=== PATIENT | male | born 1960 | race Caucasian/White ===

== ENCOUNTER 2023-10-15 15:42 | Emergency (ER) | payer BC, SELFPAY ==
[2023-10-15 15:42] VITALS: BMI 22.9
[2023-10-15 15:43] VITALS: BP 131/88
[2023-10-15 15:59] LABS: % Basophils 1.1 % (0-2); % Eosinophils 1.7 % (0-6); % Immature Granulocytes 0.4 % (0-0.5); % Lymphocytes 22.6 % (20.5-51.1); % Neutrophils 64.2 % (42.2-75.2); Absolute Basophils 0.1 10^3/uL (0-0.2); Absolute Eosinophils 0.1 10^3/uL (0-0.7); Absolute Lymphocytes 1.2 10^3/uL (1.2-3.4); Absolute Monocytes 0.5 10^3/uL (0.1-0.6); Absolute Neutrophils 3.4 10^3/uL (1.4-6.5); Hematocrit 29.6 % (39.0-52.0); Hemoglobin 9.3 g/dL (13.0-18.0); Mean Corp Hgb Conc. 31.4 g/dL (33.0-37.0); Mean Corpuscular Hgb 21.9 pg (27.0-31.0); Mean Corpuscular Volume 69.8 fL (80.0-94.0); Mean Platelet Volume 9.2 fL (7.4-10.4); Nucleated Red Blood Cells % 0 % (-); Platelet Count 311 10^3/uL (130-400); Red Blood Cell Count 4.24 10^6/uL (4.70-6.10); Red Cell Dist. Width 18.9 % (11.5-14.5); White Blood Cell Count 5.3 10^3/uL (4.8-10.8)
[2023-10-15 16:13] VITALS: BP 136/87
[2023-10-15 16:20] LABS: ALT (SGPT) 22 U/L (0-50); AST (SGOT) 25 U/L (17-59); Albumin 4.3 g/dl (3.5-5.0); Alkaline Phosphatase 98 U/L (38-126); Blood Urea Nitrogen 24 mg/dl (9-20); Calcium 9.2 mg/dl (8.4-10.2); Carbon Dioxide 26 mmol/L (22-30); Chloride 106 mmol/L (98-107); Glucose 72 mg/dl (70-99); Potassium 4.6 mmol/L (3.5-5.1); Sodium 141 mmol/L (135-145); Total Bilirubin 0.3 mg/dl (0.2-1.3); eGFR > 60.00
[2023-10-15 16:22] LABS: Troponin I < 0.012 ng/ml
--- NOTE | 2023-10-15 16:47 | ED.GENMED ---
History of Present Illness
General
Chief Complaint: Chest Pain
Time Seen by Provider: 10/15/23 16:10
History of Present Illness
History of Present Illness:
63-year-old male with history of coronary artery disease status post SC 2021 (DILAN to the RCA) presents to the emergency department for evaluation of intermittent left-sided chest pain. Symptoms are occasionally exertional and occasionally random.
They are associated with exertional shortness of breath. Denies any associated fever, chills, sweats, nausea, vomiting, or diarrhea. Pain is rated a 2 out of 10 at maximum. He has been compliant with his aspirin.
Past History
Past History
ED Past Medical History: CAD, HTN, Hypercholesterolemia, [place] and Other (Tremors)
ED Past Surgical History: Cardiac (stent)
Social History
Tobacco: Non-smoker
Alcohol: None
Drug: None
Personal:
Living: alone
Employment: Employed
Family History
Family History: Negative Early CAD
Review of Systems
Review of Systems
Allergies reviewed?: Yes
All Other Systems: ROS reviewed and negative except as documented in HPI and ROS
Phy Exam
Physical Exam
Physical Exam:
GEN: Well appearing, NAD, WDWN
HEENT: Oral mucosa moist, no scleral icterus
Cardiac: Regular rate and rhythm, no murmurs
Lung: No respiratory distress, no tachypnea, lungs clear to auscultation bilaterally
MSK: No gross deformity or injuries
Skin: Good color, no pallor or jaundice, no rashes
Neuro: AO x3, moves all extremities freely
Psych: Calm, cooperative
Scores
Heart Score for Chest Pain Patients
STEMI patient?: No
History: Moderately Suspicious
ECG: Normal
Age: >45 - <65 years
Risk Factors: >/= 3 Risk Factors or History of CAD
Troponin: </= Normal Limit
Heart Score for Chest Pain Patients: 4
Heart Score Risk: 20.3% MACE over next 6 weeks
Course
Orders/Labs/Results
Orders:
Orders
10/15/23 15:47
Electrocardiogram (*1) Urgent
Reason for Study: Chest Pain
EKG- Treatment ONCE
10/15/23 15:51
Complete Blood Count/With Diff Urgent
Comprehensive Metabolic Panel Urgent
Troponin I Urgent
Abnormal Lab Results
10/15/23
15:51
RBC 4.24 L 10^6/uL
(4.70-6.10)
Hgb 9.3 L g/dL
(13.0-18.0)
Hct 29.6 L %
(39.0-52.0)
MCV 69.8 L fL
(80.0-94.0)
MCH 21.9 L pg
(27.0-31.0)
MCHC 31.4 L g/dL
(33.0-37.0)
RDW 18.9 H %
(11.5-14.5)
Monocytes % 10.0 H %
(1.7-9.3)
BUN 24 H mg/dl
(9-20)
10/15/23 15:51
10/15/23 15:51
Vital Signs
Initial and Last Documented VS:
Initial Vital Signs
Temp Pulse Resp BP Pulse Ox
98 F 78 18 131/88 98
10/15/23 15:43 10/15/23 15:43 10/15/23 15:43 10/15/23 15:43 10/15/23 15:43
Last Documented Vital Signs
Temp Pulse Resp BP Pulse Ox
98.6 F 71 5 136/87 98
10/15/23 16:00 10/15/23 16:13 10/15/23 16:13 10/15/23 16:13 10/15/23 16:13
MDM/Problems Addressed
MDM/Problems Addressed:
Patient's EKG and troponin is reassuring. He has no symptoms at present. Will refer to cardiology through the chest pain hotline for close follow-up
Comment
Comment:
EKG independently interpreted by me shows a normal sinus rhythm at a rate of [address] changes concerning for ischemia
*Critical Care Note
Total Time (30-74mins, 75-104mins- exclusive of procedures): Not Applicable
ED Attending Note
-
Portions of this chart may have been created with voice recognition software.� Occasional wrong word or��sound alike� substitutions may have occurred due to the inherent limitations of voice recognition software.
Discharge Plan
Departure
Patient Disposition: Home (Routine Discharge)
Date of Disposition: 10/15/23
Time of Disposition: 16:55
Patient with high blood pressure during this ER visit?: No
Discharge Problem:
Chest pain
Instructions: Chest Pain DCA Follow Up
Prescriptions:
No Action
atorvastatin 80 MG tablet
80 mg PO QPM Qty: 30 11RF
aspirin 81 MG tablet,delayed release (DR/EC)
81 mg PO DAILY Qty: 30 0RF
Brilinta 90 MG tablet
90 mg PO BID Qty: 60 11RF
metoprolol succinate [Toprol XL] 25 MG tablet extended release 24 hr
25 mg PO DAILY Qty: 90 3RF
Referrals:
Kirby Sylvester DO [Family Provider] -
Spencer Baptiste MD [Active] -
Activity Restrictions/Additional Instructions:
If your pain returns or worsens, RETURN TO THE EMERGENCY DEPARTMENT
avoid physical exertion until follow up with Cardiology
Interventions
Interventions:
*Risk Screen - Suicide Last Done: 10/15/23 16:15
*General Assessment Last Done: 10/15/23 16:15
*Neglect/Abuse Screening Last Done: 10/15/23 16:15
*ED COVID-19 Vaccine History Last Done: 10/15/23 16:15
*Nursing Disposition Last Done: 10/15/23 17:20
ED- Cardiac Assessment Last Done: 10/15/23 16:15
Discharge Date and Time
Print Language: CITIZEN OF [place]
== END 2023-10-15 17:20 | disposition home or self-care (01) ==
LOC: EMR 15:42
PROVIDERS: EMERGENCY PHYSICIAN Emergency Medicine; FAMILY PHYSICIAN Family Medicine
DX: R07.89 Other chest pain (principal); R06.02 Shortness of breath; I25.10 Atherosclerotic heart disease of native coronary artery without angina pectoris; I10 Essential (primary) hypertension; R25.1 Tremor, unspecified; E78.00 Pure hypercholesterolemia, unspecified; I25.2 Old myocardial infarction; Z95.5 Presence of coronary angioplasty implant and graft; Z79.82 Long term (current) use of aspirin
CPT/HCPCS: 99283; 80053; 84484; 85025; 93005

== ENCOUNTER → 2023-11-05 11:27 | Outpatient (REF) | payer BC, SELFPAY | LOC: DHCBC/DCA 11:27 | PROVIDERS: ATTENDING PHYSICIAN Physician Assistant; FAMILY PHYSICIAN Family Medicine | DX: I25.10 Atherosclerotic heart disease of native coronary artery without angina pectoris (principal); Z95.5 Presence of coronary angioplasty implant and graft; I49.01 Ventricular fibrillation; R07.89 Other chest pain | CPT/HCPCS: 78452; 93017; A9500; J2785 ==

== ENCOUNTER 2024-03-27 10:56 | Emergency (ER) | payer BC, SELFPAY ==
[2024-03-27 11:04] VITALS: BP 103/77
[2024-03-27 11:22] VITALS: BMI 22.5
[2024-03-27 11:33] LABS: % Basophils 0.4 % (0-2); % Eosinophils 0.3 % (0-6); % Immature Granulocytes 0.4 % (0-0.5); % Lymphocytes 8.5 % (20.5-51.1); % Monocytes 7.7 % (1.7-9.3); % Neutrophils 82.7 % (42.2-75.2); Absolute Lymphocytes 0.6 10^3/uL (1.2-3.4); Absolute Monocytes 0.6 10^3/uL (0.1-0.6); Hematocrit 30.9 % (39.0-52.0); Hemoglobin 9.4 g/dL (13.0-18.0); Mean Corp Hgb Conc. 30.4 g/dL (33.0-37.0); Mean Corpuscular Hgb 20.8 pg (27.0-31.0); Mean Corpuscular Volume 68.2 fL (80.0-94.0); Mean Platelet Volume 9.7 fL (7.4-10.4); Nucleated Red Blood Cells % 0 % (-); Platelet Count 303 10^3/uL (130-400); Red Blood Cell Count 4.53 10^6/uL (4.70-6.10); Red Cell Dist. Width 18.6 % (11.5-14.5); White Blood Cell Count 7.3 10^3/uL (4.8-10.8)
[2024-03-27 11:38] LABS: COVID-19 Antigen Positive (Negative)
[2024-03-27 11:45] LABS: ALT (SGPT) 16 U/L (0-50); AST (SGOT) 21 U/L (17-59); Alkaline Phosphatase 101 U/L (38-126); Blood Urea Nitrogen 27 mg/dl (9-20); Calcium 8.8 mg/dl (8.4-10.2); Carbon Dioxide 25 mmol/L (22-30); Chloride 100 mmol/L (98-107); Estimated Creatinine Clearance 85 ml/min; Glucose 107 mg/dl (70-99); Potassium 4.7 mmol/L (3.5-5.1); Sodium 134 mmol/L (135-145); Total Bilirubin 0.3 mg/dl (0.2-1.3); eGFR > 60.00
[2024-03-27 11:55] LABS: Troponin I < 0.012 ng/ml
[2024-03-27 12:00] VITALS: BP 112/69
[2024-03-27] MEDS: TORADOL 15 MG IV (12:57)
[2024-03-27] MEDS: NSS 1000 IV (12:58)
[2024-03-27] MEDS: TYLENOL 1000 MG PO (12:58)
[2024-03-27 13:00] VITALS: BP 109/71
--- NOTE | 2024-03-27 13:01 | ED.GENMED ---
History of Present Illness
General
Chief Complaint: Cardiac Symptoms
Source: patient
Exam Limitations: none
Time Seen by Provider: 03/27/24 12:18
Nursing documentation reviewed up to this point in time: agreed with
History of Present Illness
History of Present Illness:
64-year-old male past medical history of heart disease presenting to the emergency department with concerns of bodyaches some tingling to his hands and feet diarrhea over the past 2 days. Comes and he feels very exhausted and is concerned that it
could be something with his heart concern he does have a history of heart disease. Denies specific chest pain.
Past History
Past History
ED Past Medical History: CAD, HTN, Hypercholesterolemia, [place] and Other (Tremors)
ED Past Surgical History: Cardiac (stent)
Social History
Tobacco: Non-smoker
Alcohol: None
Drug: None
Personal:
Living: alone
Employment: Employed
Family History
Family History: Negative Early CAD
Review of Systems
Review of Systems
Allergies reviewed?: Yes
All Other Systems: ROS reviewed and negative except as documented in HPI and ROS
Phy Exam
Physical Exam
Physical Exam:
GENERAL: Alert , in no apparent distress
EYE: pupils equal and reactive
NECK: Supple, no significant adenopathy.
ENT: o/p clr, mmm.
CARDIAC: Regular rate and rhythm .
LUNGS: Clear breath sounds bilaterally, no acute respiratory distress, no wheezes/rales/rhonchi
ABDOMEN: Soft, without focal tenderness, no r/g, no cvat
NEUROLOGICAL: Alert and oriented, no focal neuro deficits
SKIN: Warm and dry, skin intact.
MUSCULOSKELETAL: No edema, well perfused.
PSYCH: Normal and appropriate interaction.
Course
Orders/Labs/Results
Orders:
Orders
03/27/24 10:57
ECG [Electrocardiogram (*1)] Urgent
Reason for Study: Shortness of Breath
Other Reason for Exam: pain in neck
EKG- Treatment ONCE
03/27/24 11:24
COVID-19 Antigen Urgent
Source: Nasal Swab
Complete Blood Count/With Diff Urgent
Comprehensive Metabolic Panel Urgent
Troponin I Urgent
Influenza A+B Rapid Molecular Urgent
BRII Source: Nasal Swab
Specimen Description:
03/27/24 12:48
0.9% Sodium Chloride 1000 ml [Nss] 1,000 ml IV BOLUS
Acetaminophen [Tylenol] 1,000 mg PO NOW STA
Ketorolac [Toradol] 15 mg IV NOW STA
Abnormal Lab Results
03/27/24
11:24
RBC 4.53 L 10^6/uL
(4.70-6.10)
Hgb 9.4 L g/dL
(13.0-18.0)
Hct 30.9 L %
(39.0-52.0)
MCV 68.2 L fL
(80.0-94.0)
MCH 20.8 L pg
(27.0-31.0)
MCHC 30.4 L g/dL
(33.0-37.0)
RDW 18.6 H %
(11.5-14.5)
Absolute Lymphs (auto) 0.6 L 10^3/uL
(1.2-3.4)
Neutrophils % 82.7 H %
(42.2-75.2)
Lymphocytes % 8.5 L %
(20.5-51.1)
Sodium 134 L mmol/L
(135-145)
BUN 27 H mg/dl
(9-20)
Glucose 107 H mg/dl
(70-99)
SARS-CoV-2 Antigen Positive A
(Negative)
03/27/24 11:24
03/27/24 11:24
Vital Signs
Initial and Last Documented VS:
Initial Vital Signs
Temp Pulse Resp BP Pulse Ox
97.9 F 76 22 103/77 99
03/27/24 11:04 03/27/24 11:04 03/27/24 11:04 03/27/24 11:04 03/27/24 11:04
Last Documented Vital Signs
Temp Pulse Resp BP Pulse Ox
97.9 F 65 10 117/65 98
03/27/24 11:04 03/27/24 14:30 03/27/24 14:30 03/27/24 14:00 03/27/24 14:30
MDM/Problems Addressed
MDM/Problems Addressed:
64-year-old male presenting to the emergency department today with concerns of bodyaches tingling to his hands and feet diarrhea some mild upper respiratory symptoms over the past few days. Arrival here vital signs are normal patient in no distress
lungs are clear no abdominal pain to palp no objective focal neurologic deficits. Patient did test positive for COVID. Likely explaining patient's somewhat systemic symptoms. No evidence of focal neurologic deficit or strokelike illness. EKG
without significant acute abnormality troponin negative does not appear to be consistent with any acute cardiac etiology. Patient potentially mildly dehydrated with BUN to creatinine ratio that is elevated. He was given fluids and Toradol for
symptoms. He claims his symptoms are significantly improved after that vital signs were normal throughout the ER stay no chest pain at any point stable for outpatient management and close outpatient follow-up. Return precautions given.
*Critical Care Note
Total Time (30-74mins, 75-104mins- exclusive of procedures): Not Applicable
ED Attending Note
-
Portions of this chart may have been created with voice recognition software.� Occasional wrong word or��sound alike� substitutions may have occurred due to the inherent limitations of voice recognition software.
Discharge Plan
Departure
Patient Disposition: Home (Routine Discharge)
Date of Disposition: 03/27/24
Time of Disposition: 14:51
Patient with high blood pressure during this ER visit?: No
Condition: Good
Covid-19: Not Applicable
Discharge Problem:
COVID-19
Instructions: COVID-19 - ED discharge instructions
Prescriptions:
No Action
atorvastatin 80 MG tablet
80 mg PO QPM Qty: 30 11RF
aspirin 81 MG tablet,delayed release (DR/EC)
81 mg PO DAILY Qty: 30 0RF
Brilinta 90 MG tablet
90 mg PO BID Qty: 60 11RF
metoprolol succinate [Toprol XL] 25 MG tablet extended release 24 hr
25 mg PO DAILY Qty: 90 3RF
Referrals:
Kirby Sylvester DO [Family Provider] -
Activity Restrictions/Additional Instructions:
You came to the emergency department today and were found to have COVID. Please stay hydrated and get plenty of rest over the next few days the symptoms will hopefully improve. Return for any worsening, new or concerning symptoms.
Interventions
Interventions:
*Risk Screen - Suicide Last Done: 03/27/24 11:07
*General Assessment Last Done: 03/27/24 12:20
*Neglect/Abuse Screening Last Done: 03/27/24 12:20
ED- Pulmonary Assessment Last Done: 03/27/24 12:20
ED- Cardiac Assessment Last Done: 03/27/24 12:20
Discharge Date and Time
Print Language: TOGOLESE
[2024-03-27 14:00] VITALS: BP 117/65
== END 2024-03-27 15:10 | disposition home or self-care (01) ==
LOC: EMR 10:56
PROVIDERS: EMERGENCY PHYSICIAN Emergency Medicine; FAMILY PHYSICIAN Family Medicine
DX: U07.1 COVID-19 (principal); I25.10 Atherosclerotic heart disease of native coronary artery without angina pectoris; I10 Essential (primary) hypertension; E78.00 Pure hypercholesterolemia, unspecified; I25.2 Old myocardial infarction; R25.1 Tremor, unspecified; Z95.5 Presence of coronary angioplasty implant and graft
CPT/HCPCS: 99283; 96374; 96361; 80053; 84484; 85025; 87502; 87811; 93005

== ENCOUNTER → 2024-12-29 14:45 | Outpatient (REF) | payer BC, SELFPAY | LOC: RCS 14:45 | PROVIDERS: ATTENDING PHYSICIAN Internal Medicine Cardiovascular Disease; FAMILY PHYSICIAN Family Medicine | DX: I48.19 Other persistent atrial fibrillation (principal) | CPT/HCPCS: 93306 ==

== ENCOUNTER 2025-01-09 09:00 | Day surgery (SDC) | payer BC, SELFPAY ==
[2025-01-09 10:15] VITALS: BMI 21.8
--- NOTE | 2025-01-09 11:23 | ITS.CL.CARDI ---
Optical Engineering Technician - Cardioversion
Cardioversion
Procedure Report:
Date of Procedure: Jan 09 2025
Procedure: Cardioversion
Indication: Symptomatic atrial fibrillation
Performing Physician: Emiliano Ambrose DO, FACC
Technique: The patient was brought to the holding area. Signed informed consent was obtained. A time out was called and performed. The patient was anesthetized by the anesthesia service. Anticoagulation status was reviewed and appropriate. R2 pads
were placed anteriorly and posteriorly. A 200 J synchronized biphasic shock which was unsuccessful in restoring sinus rhythm. He then had 300 J synchronized biphasic shock which was restored normal sinus rhythm without significant bradycardia. There
were no complications.
Conclusion: Uncomplicated cardioversion from atrial fibrillation to sinus rhythm.
Recommendation: Routine post cardioversion care. Continue terminal clerk anticoagulation.
== END 2025-01-09 12:00 | disposition home or self-care (01) ==
LOC: CATH 09:00
PROVIDERS: ATTENDING PHYSICIAN Internal Medicine Cardiovascular Disease; FAMILY PHYSICIAN Family Medicine; OTHER PHYSICIAN Internal Medicine Cardiovascular Disease
DX: I48.91 Unspecified atrial fibrillation (principal); Z79.01 Long term (current) use of anticoagulants
CPT/HCPCS: 92960; 93005

== ENCOUNTER → 2025-01-13 12:11 | Outpatient (REF) | payer BC, SELFPAY | LOC: RAD 12:11 | PROVIDERS: ATTENDING PHYSICIAN Nurse Practitioner Family; FAMILY PHYSICIAN Family Medicine | DX: M79.662 Pain in left lower leg (principal) | CPT/HCPCS: 93971 ==

== ENCOUNTER 2025-01-18 21:08 | Inpatient (IN) | payer BC, SELFPAY ==
[2025-01-18] VITALS (16 sets, daily range): BP systolic 102–138; BP diastolic 56–81; BMI 23.0
[2025-01-18 17:34] LABS: Hematocrit 18.1 % (39.0-52.0); Hemoglobin 4.9 g/dL (13.0-18.0); Mean Corp Hgb Conc. 27.1 g/dL (33.0-37.0); Mean Corpuscular Volume 58.2 fL (80.0-94.0); Nucleated Red Blood Cells % 0 % (-); Platelet Count 298 10^3/uL (130-400); Red Cell Dist. Width 21.2 % (11.5-14.5)
[2025-01-18 17:58] LABS: Troponin I 0.018 ng/ml
[2025-01-18 18:02] LABS: ALT (SGPT) 33 U/L (0-50); AST (SGOT) 33 U/L (17-59); Albumin 4.0 g/dl (3.5-5.0); Alkaline Phosphatase 82 U/L (38-126); Blood Urea Nitrogen 30 mg/dl (9-20); Calcium 8.6 mg/dl (8.4-10.2); Carbon Dioxide 24 mmol/L (22-30); Chloride 103 mmol/L (98-107); Glucose 87 mg/dl (70-99); Potassium 4.6 mmol/L (3.5-5.1); Sodium 132 mmol/L (135-145); Total Protein 6.5 g/dl (6.3-8.2); eGFR > 60.00
[2025-01-18 18:39] LABS: Anisocytosis 1+; Hypochromasia 4+; Microcytosis 4+; Normal RBC Morphology No; Ovalocytes 1+; Poikilocytosis 2+; Target Cells 1+; Tear Drop Red Blood Cells 1+
--- NOTE | 2025-01-18 18:41 | ED.GENMED ---
History of Present Illness
General
Chief Complaint: Chest Pain
Time Seen by Provider: 01/18/25 18:34
History of Present Illness
History of Present Illness:
64-year-old male with history of A-fib presents to the emergency department for evaluation of exertional chest pain and dyspnea that has been ongoing since he was cardioverted here just over 1 week ago. He has no symptoms at rest. He has been
compliant with his beta-blockers and Eliquis. Denies any fever, chills, or sweats. He does note that he had frankly bloody stool approximately 2 to 3 weeks ago for several occasions but this has since resolved and he has not seen any blood or
melena. Denies any abdominal pain.
Past History
Past History
ED Past Medical History: CAD, HTN, Hypercholesterolemia, [place] and Other (Tremors)
ED Past Surgical History: Cardiac (stent)
Social History
Tobacco: Non-smoker
Alcohol: None
Drug: None
Personal:
Living: alone
Employment: Employed
Family History
Family History: Negative Early CAD
Review of Systems
Review of Systems
Allergies reviewed?: Yes
All Other Systems: ROS reviewed and negative except as documented in HPI and ROS
Phy Exam
Physical Exam
Physical Exam:
GEN: Well appearing, NAD, WDWN
HEENT: Oral mucosa moist, no scleral icterus
Cardiac: Regular rate and rhythm, no murmur
Lung: No respiratory distress, no tachypnea, lungs clear to auscultation
Rectal: Maroon stool, heme positive
MSK: No gross deformity or injuries
Skin: Good color, no pallor or jaundice, no rashes
Neuro: AO x3, moves all extremities freely
Psych: Calm, cooperative
Scores
Heart Score for Chest Pain Patients
STEMI patient?: Not applicable
Course
Orders/Labs/Results
Orders:
Orders
01/18/25 17:00
Electrocardiogram (*1) Urgent
Reason for Study: Chest Pain
EKG- Treatment ONCE
01/18/25 17:10
Cardiac Monitoring- Treatment ONCE
IV Insert/Care/Rem.- Treatment PRN
01/18/25 17:14
Complete Blood Count/With Diff Urgent
Comprehensive Metabolic Panel Urgent
Troponin I Urgent
01/18/25 18:52
Type+Screen Urgent
01/18/25 18:55
Blood Bank Products [* Blood Bank Products] Urgent
Blood Bank Products: *Packed RBC Leuko (PRBC's
Quantity: 2
Transfuse Today: Yes
Reason: Anemia
01/18/25 20:18
Admit/Transfer Patient As Directed
Co-Sign Provider:
Level of Care: Inpatient admission
Assign to:: IMU- Intermediate Care
Physician / Group: Troy Leija
Diagnosis: GI bleed, symptomatic anemia
Reason for Hospitalization: GI bleed, symptomatic anemia
Expected length of stay greater than two midnights?: Yes
ELOS- Estimated Length of Stay in days: 3
I certify the patient meets the requirements for IP care: Yes
PRN Pain Medication Management As Directed
May give lesser potent ordered pain med per pt: Yes
preference::
Protocol:: Medication orders for pain may be administered in a
manner that supports deferring to patient preference
when the pt is:
- Requesting an ordered lesser potent pain medication.
Least to most potent pain medications are defined
as: acetaminophen < NSAID < tramadol < opioids
(morphine, oxycodone, hydromorphone).
- Requesting a lesser dose of the same medication IF
ORDERED.
- Requesting a less intrusive route of administration
if both routes are prescribed by the provider (PO <
IV).
01/18/25 20:19
Code Status As Directed
Resuscitation Status: Full Code
01/18/25 21:20
0.9% Sodium Chloride 1000 ml [Nss] 1,000 ml IV 80 mls/hr
01/18/25 21:20
GASTROINTESTINAL CONSULT Routine
Consulting Provider: Francisco Morelos
Was physician already notified: Yes
Activity As Directed
Activity Level: As Tolerated
INT (Intravenous Needle Therapy) As Directed
Comment: Place 2 IV catheters of the largest bore possible until stable
Orthostatic Vital Signs As Directed
Orthostatic VS Frequency: Now
Comment: then every four hours for twenty-four hours
Pneumatic Compression Sleeves As Directed
Type: Knee high
Vital Signs As Directed
Frequency: Per unit guidelines
DX Deep Vein Thrombosis Video Routine
01/18/25 22:00
Pantoprazole [Protonix IV] 40 mg IV BID
01/19/25 Breakfast
NPO
Allow oral meds: Yes
Allow clear liquids: No
Basic Metabolic Panel IN AM
Complete Blood Count/No Diff IN AM
01/19/25 08:00
Metoprolol Xl [Toprol Xl] 25 mg PO DAILY
Abnormal Lab Results
01/18/25 01/18/25
17:14 18:52
RBC 3.11 L 10^6/uL
(4.70-6.10)
Hgb 4.9 L* g/dL
(13.0-18.0)
Hct 18.1 L* %
(39.0-52.0)
MCV 58.2 L fL
(80.0-94.0)
MCH 15.8 L pg
(27.0-31.0)
MCHC 27.1 L g/dL
(33.0-37.0)
RDW 21.2 H %
(11.5-14.5)
Absolute Lymphs (auto) 0.8 L 10^3/uL
(1.2-3.4)
Lymphocytes % 15.3 L %
(20.5-51.1)
Sodium 132 L mmol/L
(135-145)
BUN 30 H mg/dl
(9-20)
Crossmatch IS Only See Detail
01/18/25 17:14
01/18/25 17:14
Vital Signs
Initial and Last Documented VS:
Initial Vital Signs
Temp Pulse Resp BP Pulse Ox
97.7 F 71 20 102/56 100
01/18/25 17:07 01/18/25 17:07 01/18/25 17:07 01/18/25 17:07 01/18/25 17:07
Last Documented Vital Signs
Temp Pulse Resp BP Pulse Ox
98.4 F 63 18 130/74 95
01/19/25 00:03 01/19/25 00:03 01/19/25 00:03 01/19/25 00:03 01/19/25 00:03
MDM/Problems Addressed
MDM/Problems Addressed:
Patient does have maroon stool in the rectal vault concerning for lower GI bleed causing his severe anemia. No indication for PPI administration given suspicion for lower GI as opposed to upper GI source. Blood transfusion initiated in the ED will
be admitted for further management
*Pulse Oximetry
SaO2: 97
Oxygen Mode of Delivery: Room air
Patient hypoxic: no
*Critical Care Note
Total Time (30-74mins, 75-104mins- exclusive of procedures): 35 minutes
comment:
Critical care time: 35 minutes
Critical care time was exclusive of: Separately billable procedures, treating other patients, and teaching time
Critical care was necessary to treat or prevent imminent or life-threatening deterioration of the following conditions: Symptomatic blood loss anemia
Critical care time spent personally by me on the following activities:
[x] Review of old charts
[x] Obtaining history from patient or surrogate
[x] Ordering and review of the laboratory studies
[ ] Ordering and review of radiographic studies
[x] Ordering and performing treatments and interventions
[x] Patient patient's response to treatment
[x] Development of treatment plan with patient or surrogate
ED Attending Note
-
Portions of this chart may have been created with voice recognition software.� Occasional wrong word or��sound alike� substitutions may have occurred due to the inherent limitations of voice recognition software.
Discharge Plan
Departure
Patient Disposition: Admit
Date of Disposition: 01/18/25
Time of Disposition: 19:39
Admit to: Med/Surg
Presentation/result/management discussed w/ accepting MD/DO: Hospitalist
Discharge Problem:
Acute lower GI bleeding, Symptomatic anemia
Interventions
Interventions:
*Risk Screen - Suicide Last Done: 01/18/25 18:18
*General Assessment Last Done: 01/18/25 18:18
*Neglect/Abuse Screening Last Done: 01/18/25 18:18
*ED COVID-19 Vaccine History Last Done: 01/18/25 18:18
*ED Influenza Vaccine History Last Done: 01/18/25 18:18
[facility] Fall Risk Assessment Tool Last Done: 01/18/25 18:26
ED- Cardiac Assessment Last Done: 01/18/25 18:18
--- NOTE | 2025-01-18 19:44 | HPS.HSE ---
Addendum entered and electronically signed by Troy Leija MD 01/18/25 20:32:
This is an addendum to the H&P written by Key King on 01/18/2025. �Patient seen and examined independently with [facility]UM [facility].
64-year-old male past medical history of paroxysmal atrial fibrillation on Eliquis, CAD, history of STEMI/V-fib arrest presenting with exertional dyspnea.
Underwent cardioversion last week with exertional dyspnea, lightheadedness and chest pressure. �Also palpitations. �Bright red blood intermittently.
Vital signs show show tachycardia 118. �On rectal exam he has maroon blood.
Labs show hemoglobin 4.9 from 9.4 previously. �Troponin 0.018. �EKG shows normal sinus rhythm.
Patient with symptomatic acute blood loss anemia likely lower GI bleeding. �Not actively bleeding. �Hold Eliquis. �2 units of blood. �Protonix 40 IV twice daily. �Check iron studies, B12. �N.p.o. past midnight. �GI consulted.
Saw pipe washer this past week and was recommended stress test.
Original Note:
Family Physician
-
Family Physician: Kirby Sylvester
Chief Complaint
-
increased shortness of breath, chest pain and lightheadedness
History of Present Illness
Patient is a 63-year-old male with past medical history significant for paroxysmal atrial fibrillation and CAD who presented to [facility] ED for evaluation of increased shortness of breath, chest pain and lightheadedness. Patient reports being in a-fib
last week and had cardioversion on 01/09/2025. Since then he reports that his symptoms have been getting worse. He states that his chest pain is nonradiating, dyspnea is mainly exertional and he has intermittent episodes of lightheadedness. Denies
fever, chills, cough, nausea, vomiting, constipation, diarrhea or urinary symptoms. He does endorse bright red bleeding when questioned. He states it has been intermittent bright red blood over past 2-3 weeks, last time being last week. Unsure if
stools have been dark in between bleeding episodes but does report that is possible.
Medical History
Past Medical History
Past Medical History: Reports Other
Additional Past Medical History:
paroxysmal atrial fibrillation
CAD
Hx STEMI with v-fib arrest
Past Surgical History: Reports Other
Additional Past Surgical History:
PCI with overlapping 4.0 x 12 mm and 3.5 x 28 mm Xience stents to mid RCA 05/04/21
Social History
Tobacco: Non-smoker
Alcohol: None
Living: Alone
Employment: Employed
Family History
Family History: Not pertinent
Allergies / Home Medications
Allergies reflects when Allergies were last updated in [employer].
Home Medications with original date entered in [employer]
Allergy/Medication List:
Allergies
Allergy/AdvReac Type Severity Reaction Status Date / Time
No Known Allergies Allergy Verified 01/18/25 17:07
Home Medications
metoprolol succinate 25 mg tablet,extended release 24 hr (Toprol XL) 25 mg PO DAILY ##90 05/13/21
apixaban 5 mg tablet (Eliquis) 5 mg PO BID 01/09/25
Review of Systems
-
History Source: Patient
Constitutional: Denies Fever or Chills
EENT: Denies Sore Throat
Respiratory: Reports Trouble Breathing (exertional dyspnea ); Denies Cough or Hemoptysis
Cardiac: Reports Chest Pain (seems to be associated with dyspnea ); Denies Diaphoresis, Palpitations or Syncope
Abdomen/GI: Reports Bloody Stools; Denies Abdominal Pain, Nausea, Vomiting, Diarrhea or Constipated
: Denies Dysuria, Frequency or Urgency
Musculoskeletal: Denies Joint Pain
Skin: Denies Rash
Neurological: Reports Dizzy (lightheadedness ); Denies Headache, Weakness or Numbness
Endocrine: Denies Polyuria or Polydipsia
Physical Exam
Vital Signs
Vital Signs
Temp Pulse Resp BP Pulse Ox
97.7 F 118 27 138/70 97
01/18/25 17:07 01/18/25 18:11 01/18/25 18:11 01/18/25 18:11 01/18/25 18:42
Physical Exam
General: Well Developed, Well Nourished, No Apparent Distress, Comfortable and Conversant
HEENT: NormoCephalic, Atraumatic, PERRLA, Nose Appears Normal and Ears Appear Normal
Respiratory: Clear and Non Labored Respirations; No Wheezes, Rales or Rhonchi
Cardiac: S1/S2 and Regular Rhythm; No Murmur, Rub, Gallop or Peripheral Edema
GI: Soft, Non Tender, Non Distended and Normal Bowel Sounds
Rectal: Hem Positive (ED assessment reports heme positive ) and Maroon Stools (found on ED rectal exam)
Musculoskeletal: No Clubbing and No Cyanosis
Skin: Warm and IV/Catheter Site
Neuro: Awake and AO x 3
Psych: Calm and Intact Judgment/Insight
Laboratory Results
-
01/18/25 17:14
01/18/25 17:14
Laboratory Results
Total Bilirubin 0.4 mg/dl (0.2-1.3) 01/18/25 17:14
AST 33 U/L (17-59) 01/18/25 17:14
ALT 33 U/L (0-50) 01/18/25 17:14
Alkaline Phosphatase 82 U/L (38-126) 01/18/25 17:14
Troponin I 0.018 ng/ml 01/18/25 17:14
Data Reviewed
-
Medical Tests (Nuc Med, Echo, EKG etc): Discussed with Physician (EKG: NORMAL SINUS RHYTHM NONSPECIFIC ST ABNORMALITY)
Lab Data: Labs Reviewed by me (hgb 4.9, hct 18.1, Na 132 )
Impression/Plan
-
IMPRESSION/PLAN:
#exertional dyspnea with chest pain and lightheadedness 2/2 ACS vs. a-fib vs. anemia
#symptomatic anemia
#GI bleed
increased shortness of breath, chest pain and lightheadedness, intermittent bright red blood with stools over past 2-3 weeks
hgb 4.9, hct 18.1, Na 132
EKG: NORMAL SINUS RHYTHM
NONSPECIFIC ST ABNORMALITY
- Admit to IMU
- Consult GI
- 2 units PRBCs ordered
- IV Protonix 40mg BID
- monitor for bleeding
#paroxysmal atrial fibrillation
Hx cardioversion 01/09/25
- hold Eliquis in setting of GI bleed
- continue metoprolol
#CAD
Hx STEMI with v-fib arrest in labor custodian
s/p PCI with overlapping 4.0 x 12 mm and 3.5 x 28 mm Xience stents to mid RCA 05/04/21
- recent visit to pipe washer with similar complaints, pending stress test
Code status: full code
DVT prophylaxis: SCDs
[2025-01-18] MEDS: NSS 1000 IV (21:36)
[2025-01-18] MEDS: NSS (PRESERVATIVE FREE) 10 ML IV (22:07)
[2025-01-18] MEDS: PROTONIX IV 40 MG IV (22:07)
[2025-01-19] VITALS (36 sets, daily range): BP systolic 107–134; BP diastolic 53–88
[2025-01-19 02:33] LABS: Hematocrit 21.6 % (39.0-52.0); Hemoglobin 6.4 g/dL (13.0-18.0)
--- NOTE | 2025-01-19 02:47 | W.PN.UPDATE ---
Update Note
Progress Note Update
Critical labs: Hgb 6.4/Hct 21.6, ordered 1 unit PRBC's to transfuse now.
[2025-01-19 06:46] LABS: Hematocrit 22.4 % (39.0-52.0); Hemoglobin 6.7 g/dL (13.0-18.0); Mean Corp Hgb Conc. 29.9 g/dL (33.0-37.0); Mean Corpuscular Volume 65.5 fL (80.0-94.0); Platelet Count 229 10^3/uL (130-400); Red Cell Dist. Width 26.5 % (11.5-14.5)
[2025-01-19 06:58] LABS: Blood Urea Nitrogen 21 mg/dl (9-20); Calcium 8.3 mg/dl (8.4-10.2); Carbon Dioxide 22 mmol/L (22-30); Chloride 109 mmol/L (98-107); Estimated Creatinine Clearance 105 ml/min; Glucose 72 mg/dl (70-99); Potassium 4.3 mmol/L (3.5-5.1); Sodium 134 mmol/L (135-145); eGFR > 60.00
[2025-01-19] MEDS: NSS (PRESERVATIVE FREE) 10 ML IV ×2 (08:04→22:25)
[2025-01-19] MEDS: PROTONIX IV 40 MG IV ×2 (08:05→22:25)
[2025-01-19] MEDS: TOPROL XL 25 MG PO (08:05)
[2025-01-19] MEDS: NSS 1000 IV ×2 (08:20→22:19)
[2025-01-19 08:37] LABS: Hematocrit 23.2 % (39.0-52.0); Hemoglobin 6.6 g/dL (13.0-18.0)
--- NOTE | 2025-01-19 08:40 | EDCM ---
Reviewed chart and met with pt bedside in ED. Lives alone in 1 story home, 1 [address].
Independent in ADLs, personal care anf ambulation at baseline, no assistive devices, no DME
Confirms prescription coverage
No hx VN or SNF
PCP: Kirby Sylvester
Pharmacy: [facility]
Anticipate discharge home, CM will continue to follow for any discharge planning needs.
--- NOTE | 2025-01-19 11:33 | CON.GI ---
Addendum entered and electronically signed by Francisco Morelos MD 01/19/25 18:22:
The patient was seen and examined by me independently in collaboration with the nurse practitioner.
Past medical history/social history/medications/allergies/family history reviewed.
Lab data and imaging data reviewed.
64-year-old male past medical history of CAD, STEMI with V-fib arrest in 2021, current workup for prostate cancer with elevated PSA, recent onset of A-fib with cardioversion January 09 presenting with chest pain and shortness of breath also with
reports with bright red stool and black stool.. Found to have a hemoglobin of 4.9. Appreciate cardiology recommendations okay to proceed with procedure. Last Eliquis dose 01/18 in the AM. Patient never had upper endoscopy or colonoscopy.
Plan for upper endoscopy and colonoscopy tomorrow. We discussed the risk, benefits, and alternatives to upper endoscopy. The risks include bleeding, infection, perforation, missed lesion, and cardiopulmonary complications from anesthesia. We
discussed the risks of colonoscopy including bleeding, infection, missed lesion, incomplete procedure, perforation and cardiopulmonary complications from anesthesia. Patient agreed to the procedure.
I am concerned about possible malignancy. Differential includes AVM, ulcer, small bowel bleed.
Addendum entered and electronically signed by KATRINA Johnson 01/19/25 13:08:
pt is due 01/26 for MRI pelvis with concern for elevated PSA for eval for prostate CA
Original Note:
Consultation
-
Date/Time Consultation Requested: 01/18/252119
Date/Time Consultation Performed: 01/19/25 1130
Requesting Provider: KATRINA Hooper
Performing Provider: KATRINA Mcpherson, Jessie Morelos MD
Reason for Consultation: anemia
Medical History
Chief Complaint / HPI
Chief Complaint: shortness of breath
History of Present Illness:
Pt is a 64yo with hx CAD, STEMI with V fib arrest, with RCA 2021, Hyperlipidemia, HTN, moderate MR and current work up for prostate CA with elevated PSA with recent onset of afib and start of Anticoagulation about 1 month ago. He has
cardioversion 01/09. He now presents with chest pain and shortness of breath noted hbg 4.9 with MCV 58.2 with BUN 30. Prior hbg in 03/2024- with hbg 9.4 and MCV 68.2. Pt otherwise with mild hyponatremia with na 132 but stable labs. He admits to
worsening GERD and also seeing some larger amount of red blood in toilet about 2-3 weeks ago along with black looser stools. He also admits to dizziness and shortness of breath with chest pain on admission with stable troponin but denies
dysphagia, nausea, vomiting, abdominal pain, or constipation. No hx EGD/colonoscopy in past. No NSAID use. Rectal on admission with maroon heme + stools.
Past Medical History
Past Medical History: Arrhythmias (VF arrest with STEMI, recent Afib ), CAD and HTN
Past Surgical History: Cardiac (stents, cardioversion 01/09/25 )
Social History
Tobacco: Non-Smoker
Alcohol: Former (social on past )
Drug: None
Living: Alone
Employment: Employed
Family History
Family History: Other (mother with GI bleed, no family hx colon CA or polyps)
Allergies / Home Medications
Allergy/AdvReac Type Severity Reaction Status Date / Time
No Known Allergies Allergy Verified 01/18/25 17:07
�Medication �Instructions �Recorded
metoprolol succinate 25 mg 25 mg PO DAILY ##90 05/13/21
tablet,extended release 24 hr
(Toprol XL)
apixaban 5 mg tablet (Eliquis) 5 mg PO BID 01/09/25
Review of Systems
-
History Source: Patient
Constitutional: Reports No Symptoms
Respiratory: Reports Trouble Breathing
Cardiac: Reports Chest Pain (on admission now improving )
Abdomen/GI: Reports Diarrhea, Bloody Stools, Black Stools and Other (increased GERD)
: Reports No Symptoms
Musculoskeletal: Reports No Symptoms
Skin: Reports No Symptoms
Neurological: Reports Dizzy and Weakness
Endocrine: Reports No Symptoms
Hematologic/Lymphatic: Reports Bleeding
Vital Signs
Temp Pulse Resp BP Pulse Ox
98.1 F 62 18 127/72 94
01/19/25 11:28 01/19/25 11:28 01/19/25 11:28 01/19/25 11:28 01/19/25 07:30
Physical Exam
Exam
General: Well Developed, Well Nourished and No Apparent Distress
HEENT: Normocephalic and Anicteric
Respiratory: Clear
Cardiac: Regular Rhythm
GI: Soft, Non Tender and Non Distended
Rectal: Other (marroon stool per ER)
Musculoskeletal: No Clubbing and No Cyanosis
Skin: Warm and Dry
Neuro: Awake, Alert and AO x 3
Psych: Calm
Results
WBC 5.2 10^3/uL (4.8-10.8) 01/19/25 05:45
Hgb 6.6 g/dL (13.0-18.0) L* 01/19/25 08:11
Hct 23.2 % (39.0-52.0) L 01/19/25 08:11
MCV 65.5 fL (80.0-94.0) L 01/19/25 05:45
Plt Count 229 10^3/uL (130-400) D 01/19/25 05:45
Absolute Neuts (auto) 3.8 10^3/uL (1.4-6.5) 01/18/25 17:14
Sodium 134 mmol/L (135-145) L 01/19/25 05:45
Potassium 4.3 mmol/L (3.5-5.1) 01/19/25 05:45
Chloride 109 mmol/L (98-107) H 01/19/25 05:45
Carbon Dioxide 22 mmol/L (22-30) 01/19/25 05:45
BUN 21 mg/dl (9-20) H 01/19/25 05:45
Creatinine 0.8 mg/dL (0.7-1.3) 01/19/25 05:45
Calcium 8.3 mg/dl (8.4-10.2) L 01/19/25 05:45
Total Bilirubin 0.4 mg/dl (0.2-1.3) 01/18/25 17:14
AST 33 U/L (17-59) 01/18/25 17:14
ALT 33 U/L (0-50) 01/18/25 17:14
Alkaline Phosphatase 82 U/L (38-126) 01/18/25 17:14
Diagnostic Image Results:
Prior GI Procedures:
EGD: none
Colonoscopy: none
Assessment / Plan
-
Pt is a 64yo with hx CAD, STEMI with V fib arrest, with RCA 2021, Hyperlipidemia, HTN, moderate MR and current work up for prostate CA with elevated PSA with recent onset of afib and start of Anticoagulation about 1 month ago. He has
cardioversion 01/09. He now presents with chest pain and shortness of breath noted hbg 4.9 with MCV 58.2 with BUN 30.. Prior hbg in 03/2024- with hbg 9.4 and MCV 68.2. Pt otherwise with mild hyponatremia with na 132 but stable labs. He admits to
worsening GERD and also seeing some larger amount of red blood in toilet about 2-3 weeks ago along with black looser stools. He also admits to dizziness and shortness of breath with chest pain on admission with stable troponin but denies
dysphagia, nausea, vomiting, abdominal pain, or constipation. No hx EGD/colonoscopy in past. No NSAID use. Rectal on admission with maroon heme + stools.
-severe symptomatic microcytic anemia with prior noted anemia in past with microcytosis
-new onset afib with recent cardioversion and recent start of Eliquis
-chest pain on admission - trop 0.018
-hyponatremia
other med problems:
-CAD, STEMI with V fib arrest, with RCA 2021, Hyperlipidemia, HTN, moderate MR
PLAN:
Etiology of anemia with microcytosis related to upper, lower vs SB bleeding with black and red stools and maroon stool on admission -- Mass, ectasia, PUD, vs other
plan for EGD/colon 01/20
last Eliquis 12/3 AM
cont PPI BID
ok for clear diet no reds
ok per cards to proceed with recent chest pain and recent cardioversion
s/p 4 units transfused repeat hbg at 1400
updated sister at bedside
-
-
Thank you for consultation and allowing me to participate in the patient's care. Please call the production gear cutter GI physician during the after hours with any questions or concerns.
--- NOTE | 2025-01-19 11:35 | CON.CAR ---
Addendum entered and electronically signed by Mesfin Joel MD 01/19/25 12:45:
64-year-old man who underwent cardioversion for persistent atrial fibrillation on January 09 for newly diagnosed A-fib, now with palpitations dyspnea chest burning and lightheadedness with episodes of hematochezia, found to have hemoglobin of 4.9
upon presentation to the emergency department January 18
PMH: PAF, cardioversion January 09, 2025, inferior [place] 2021 with RCA PCI, hyperlipidemia, mild to moderate MR
Meds reviewed
Rest of history as below, reviewed in detail and agree unless otherwise specified
127/72, pulse 62, weight is 78.9 kg, no acute distress after 4 units of blood, lungs relatively clear, regular rate and rhythm soft systolic murmur, abdomen benign extremities without clubbing cyanosis or edema
ECG nonspecific ST changes sinus rhythm
Initial hemoglobin 4.9, platelets 229, potassium 4.3, sodium 134, BUN and creatinine are 21 and 0.8, troponin is 0.018
Impression:
Subacute/acute anemia with heme positive stools, hemoglobin 4.9
PAF status post cardioversion January 09, 2025
CAD, inferior [place] 2021 with RCA PCI
Moderate MR
Hyperlipidemia
Other diagnoses as below. Reviewed in detail and agree unless otherwise specified.
Echo December 2024: EF 55 to 60% mild to moderate MR, dilated left atrium aortic sclerosis, dilated RV
Plan:
He presents with severe anemia following cardioversion. It has been 10 days since his cardioversion and he is in sinus rhythm, so risk of cardioembolic stroke off anticoagulation is currently low.
Overall he looks reasonably well having received 4 units of packed cells.
.
Okay to proceed with GI evaluation at this time.
Eventually will want to restart anticoagulation. Await results of GI evaluation.
We will continue to follow.
Original Note:
Consultation
Consultation Request
Date/Time Consultation Performed: 01/19/25
Requesting Provider: Dr. Hayden Peng
Performing Provider: Chani Giron PA-C for Dr. AIDAN Joel
Reason for Consultation: recent CV, anemia
Medical History
-
Chief Complaint: CP, SOB, recent CV
History of Present Illness:
Patient is a 64-year-old male with past medical history of STEMI status post RCA PCI in 2021, hyperlipidemia, moderate MR, recent diagnosis symptomatic atrial fibrillation, paroxysmal who underwent cardioversion 01/09/2025 which was successful. He
reports he has been on Eliquis for approximately 3 to 4 weeks. He states that he has been having bloody stools starting 2 weeks ago, however then temporarily resolved, and then had started again. He was seen in the office on 01/17/2025 to discuss
ablation, and reported symptoms of palpitations, shortness of breath, chest burning, lightheadedness. Due to this and his history of coronary disease he was arranged for a Lexiscan stress test scheduled for 01/30/2025. Due to worsening of symptoms
since appointment on 01/17 he called the office and was referred to the ER for further workup and evaluation. On arrival noted to have hemoglobin of 4.9. Receiving PRBCs. Presently in sinus rhythm
PMH:
Recent diagnosis symptomatic paroxysmal atrial fibrillation
Status post successful cardioversion 01/09/2025
OAC with eliquis
CAD status post STEMI with RCA PCI 2021
Hyperlipidemia
Moderate MR
Past Medical History
Past Medical History: Other (in HPI)
Social History
Tobacco: Non-Smoker
Alcohol: None
Employment: Employed
Family History
Family History: Other (valve replacement in mother)
Allergies / Home Medications
Allergy/AdvReac Type Severity Reaction Status Date / Time
No Known Allergies Allergy Verified 01/18/25 17:07
�Medication �Instructions �Recorded �Confirmed �Type
metoprolol succinate 25 mg 25 mg PO DAILY ##90 05/13/21 01/18/25 Rx
tablet,extended release 24 hr
(Toprol XL)
apixaban 5 mg tablet (Eliquis) 5 mg PO BID 01/09/25 01/18/25 History
Review of Systems
-
History Source: Patient
All other systems: Negative unless noted
Physical Exam
Vital Signs
Temp Pulse Resp BP Pulse Ox
98.1 F 62 18 127/72 94
01/19/25 11:28 01/19/25 11:28 01/19/25 11:28 01/19/25 11:28 01/19/25 07:30
Lab Results
01/19/25 05:45
Troponin I 0.018 ng/ml 01/18/25 17:14
Physical Exam
General: No Apparent Distress and Comfortable
HEENT: Normocephalic, Anicteric and Moist Mucous Membranes
Respiratory: Clear and Non Labored Respirations
Cardiac: S1/S2, Regular Rhythm and Murmur
GI: Soft, Non Tender, Non Distended and Normal Bowel Sounds
Musculoskeletal: No Clubbing, No Cyanosis and No Edema
Skin: Warm and Dry
Neuro: AO x 3
Impression / Plan
-
Primary Edge Worker: Dr. Washington
Assessment:
Presentation with CP, SOB, dizziness
Acute anemia
Heme positive stool, presumed GIB
Recent diagnosis symptomatic paroxysmal atrial fibrillation
Status post successful cardioversion 01/09/2025
OAC with eliquis
CAD status post STEMI with RCA PCI 2021
Hyperlipidemia
Moderate MR
Mild hyponatremia
Echo 12/29/2024: EF 55 to 60%, mild to moderate MR, severely dilated LA, aortic sclerosis, dilated RV, PAP 32 mmHg
Plan:
- Patient presented with chest pain, shortness of breath, dizziness and found to have significant anemia with hemoglobin of 4.9. Heme positive stool in ER, presumed GI bleeding
- Thus far has received 4 units packed red blood cells. Follow hemoglobin.
- GI to evaluate
- Holding Eliquis in setting of above. Underwent cardioversion 01/09/2025. Risk for CVA is somewhat elevated within 3 weeks post cardioversion, however at this point is necessary given marked bleeding
- Currently in sinus rhythm. Continue Toprol as blood pressure allows. Follow on telemetry
- He had been scheduled for outpatient Lexiscan stress test 01/30/2025 due to history of CAD as above. Will reevaluate symptoms after GI bleeding addressed, and can determine whether still necessary to move forward with stress testing and whether
timing of that is appropriate
- Recent echo with results as above
- Troponin 0.018 and EKG appears similar to that post cardioversion 01/05/2025
- Patient is being considered for ablation, however would need to be able to tolerate anticoagulation for several months perioperatively.
Data Reviewed
-
EKG: Tracing Personally Visualized and interpreted
Medical Tests (Nuc Med, Echo etc): Report Reviewed by me
Labs: Labs Reviewed by me
Old Records: Reviewed
[2025-01-19 13:23] LABS: Iron 21 ug/dl (49-181)
[2025-01-19 13:33] LABS: Total Iron Binding Capacity 527 ug/dl (261-462)
--- NOTE | 2025-01-19 14:13 | W.PN.HOSP.TC ---
Today's Communication/Plan
-
Assessment / Plan
Assessment / Plan
NAD
Scleral Anicteric
MMM
No JVD
CTABL
RRR, S1/S2
Soft, NT, ND, BS+
Warm, Dry
AAOx3
Calm
Chronic microcytic anemia on acute blood loss anemia suspect upper versus lower GI bleed
S/p PRBC�4u
Twice daily IV PPI while
2 large-bore IVs
IV fluids
Bidirectional scope planned for 01/20
Hold Eliquis
Clear liquid diet today, n.p.o. after midnight
Paroxysmal atrial fibrillation
Hold Eliquis
Continue beta-sabrina
CAD DILAN with known history of V-fib arrest
S/p PCI cardiology consulted
Anticipated Discharge: > 48 hours
Subjective/Interval History
-
Date of Service: January 19, 2025
Seen and examined. No new complaints. No acute overnight events.
Objective Data
-
Labs:
Laboratory Results
01/19/25 01/19/25 01/19/25
01:51 05:45 08:11
WBC 5.2
Hgb 6.4 L* D 6.7 L* 6.6 L*
Hct 21.6 L 22.4 L 23.2 L
Plt Count 229 D
Sodium 134 L
Potassium 4.3
Chloride 109 H
Carbon Dioxide 22
BUN 21 H
Creatinine 0.8
Glucose 72
Calcium 8.3 L
01/19/25
14:00
WBC
Hgb Pending
Hct Pending
Plt Count
Sodium
Potassium
Chloride
Carbon Dioxide
BUN
Creatinine
Glucose
Calcium
Vital Signs:
Vital Signs
Temp Pulse Resp BP Pulse Ox
97.9 F 61 16 128/65 97
01/19/25 11:42 01/19/25 12:45 01/19/25 12:45 01/19/25 12:00 01/19/25 12:30
I&O
01/18/25 01/19/25 01/20/25
06:59 06:59 06:59
Intake Total 750 / 750 250 / 250
Output Total 400 / 400 600 / 600
Balance 350 / 350 -350 / -350
[2025-01-19 14:27] LABS: Hematocrit 24.0 % (39.0-52.0); Hemoglobin 7.3 g/dL (13.0-18.0)
[2025-01-19] MEDS: MIRALAX 34 GRAMS PO (14:47)
[2025-01-19 15:07] LABS: Ferritin 4.6 ng/ml (17.9-464.0)
[2025-01-19 15:38] LABS: Folate > 20.0 ng/ml (2.76-20); Vitamin B12 300 pg/ml (239-931)
[2025-01-19] MEDS: TYLENOL 650 MG PO (16:56)
--- NOTE | 2025-01-19 17:15 | PTCARENOTE ---
Pt from ER, AAAOx3 pleasant and cooperative.. Pt states he has a DENNEY Tylenol order obtained and given. Awaiting to start bowel prep for colonoscopy in am.
[2025-01-19] MEDS: NULYTELY SOLUTION 4 LITERS PO (20:26)
[2025-01-19 22:39] LABS: Hematocrit 26.7 % (39.0-52.0); Hemoglobin 8.0 g/dL (13.0-18.0)
[2025-01-20] VITALS (20 sets, daily range): BP systolic 19–152; BP diastolic 55–144
--- NOTE | 2025-01-20 04:18 | PTCARENOTE ---
Assumed care of patient from daysidft RN. Pt aaox3 and tremulous. SpO2 96% on RA. Sinus ariana on tele monitor. VS and assessment as documented. Bowel prep completed as well as hygiene including CHG wipes and active toileting throughout the night.
Patient with multiple large BMs throughout the night. Pt currently resting in bed with call ball in reach.
[2025-01-20 04:53] LABS: Hematocrit 27.5 % (39.0-52.0); Hemoglobin 8.3 g/dL (13.0-18.0); Mean Corp Hgb Conc. 30.2 g/dL (33.0-37.0); Mean Corpuscular Volume 66.9 fL (80.0-94.0); Platelet Count 272 10^3/uL (130-400); Red Cell Dist. Width 25.9 % (11.5-14.5)
[2025-01-20 05:00] LABS: INR 1.14; PT 14.4 Sec (11.4-14.6)
[2025-01-20 05:21] LABS: Blood Urea Nitrogen 12 mg/dl (9-20); Calcium 8.7 mg/dl (8.4-10.2); Carbon Dioxide 25 mmol/L (22-30); Chloride 106 mmol/L (98-107); Estimated Creatinine Clearance 94 ml/min; Glucose 86 mg/dl (70-99); Potassium 4.3 mmol/L (3.5-5.1); Sodium 135 mmol/L (135-145); eGFR > 60.00
[2025-01-20] MEDS: NSS (PRESERVATIVE FREE) 10 ML IV ×2 (07:44→20:14)
[2025-01-20] MEDS: PROTONIX IV 40 MG IV ×2 (07:45→20:14)
[2025-01-20] MEDS: TOPROL XL 25 MG PO (07:47)
--- NOTE | 2025-01-20 10:54 | W.PN.CARDCBS ---
Today's Communication / Plan
-
Stable cardiac status
No cardiac objections to EGD/colonoscopy
Eventual restart of anticoagulation
Continue metoprolol
Impression / Plan
-
Primary Lacrosse Coach: Dr. Washington
Assessment:
Presentation with CP, SOB, dizziness
Acute anemia
Heme positive stool, presumed GIB
Recent diagnosis symptomatic paroxysmal atrial fibrillation
Status post successful cardioversion 01/09/2025
OAC with eliquis
CAD status post STEMI with RCA PCI 2021
Hyperlipidemia
Moderate MR
Mild hyponatremia
Echo 12/29/2024: EF 55 to 60%, mild to moderate MR, severely dilated LA, aortic sclerosis, dilated RV, PAP 32 mmHg
Plan:
He appears stable from a cardiac standpoint. He remains in sinus rhythm. He is off anticoagulation and his hemoglobin is now 8.2. He is physically comfortable.
Okay from cardiac standpoint to proceed with EGD and colonoscopy later today as planned.
His troponin was detectable, but this is not a major issue
Eventually, we will want to restart apixaban when safe from a GI standpoint. However, currently he is in sinus rhythm so cardioembolic risk is low even if anticoagulation is held.
We will continue to follow.
Progress Note - Lacrosse Coach
Subjective
Date of Service: January 20, 2025:
Patient for endoscopy and colonoscopy later today
He remains in sinus rhythm
Medications: Metoprolol ER 25 mg a day, IV pantoprazole, Normosol
127/69, pulse 56, respiratory rate 18, head neck exam unremarkable, lungs are clear, regular rate and rhythm with soft systolic murmur at apex, no physical distress but seems animated, slightly anxious, no edema
Hemoglobin is 8.3, platelets are 272, BUN and creatinine are 12 and 0.9
Objective
Labs:
01/20/25 04:37
01/20/25 04:37
Labs
Hgb 8.3 g/dL (13.0-18.0) L 01/20/25 04:37
Hct 27.5 % (39.0-52.0) L 01/20/25 04:37
Plt Count 272 10^3/uL (130-400) 01/20/25 04:37
PT 14.4 Sec (11.4-14.6) 01/20/25 04:37
INR 1.14 01/20/25 04:37
Sodium 135 mmol/L (135-145) 01/20/25 04:37
Potassium 4.3 mmol/L (3.5-5.1) 01/20/25 04:37
BUN 12 mg/dl (9-20) 01/20/25 04:37
Creatinine 0.9 mg/dL (0.7-1.3) 01/20/25 04:37
Glucose 86 mg/dl (70-99) 01/20/25 04:37
Troponins
01/18/25
17:14
Troponin I 0.018
Vital Signs and I&O:
Vital Signs
Temp Pulse Resp BP Pulse Ox
36.4 C 56 18 127/69 97
01/20/25 07:53 01/20/25 08:00 01/20/25 07:53 01/20/25 07:53 01/20/25 07:56
Vital Signs
Temp Pulse Resp BP Pulse Ox
36.4 C 56 18 127/69 97
01/20/25 07:53 01/20/25 08:00 01/20/25 07:53 01/20/25 07:53 01/20/25 07:56
Intake & Output
01/18/25 01/19/25 01/20/25 01/21/25
07:59 07:59 07:59 07:59
Intake Total 750 / 750 6890 / 6890
Output Total 400 / 400 2500 / 2500
Balance 350 / 350 4390 / 4390
Physical Exam
Physical Exam
See above
--- NOTE | 2025-01-20 13:16 | PN.CDI ---
CDI
- -
CDI:
Physician Documentation Request
Admit Date: 01/18/25 21:08
Dear Doctor Danish,
Please review the following and provide your response in the progress notes.
Clinical Indicators:
PN, 01/19
#Chronic microcytic anemia on acute blood loss anemia suspect upper versus lower GI bleed
#...S/p PRBC�4u
#Paroxysmal atrial fibrillation
#...Hold Eliquis
Based on the above and your clinical assessment, please clarify the relationship, if any, between these conditions:
Yes, ABLA/GI bleed is enhanced by/associated with/due to Eliquis.
No, ABLA/GI bleed is not enhanced by/associated with/due to Eliquis but it is due to ___. (Please specify)
Other (please specify)
Use of terms such as suspected, likely, concern for, or probable (associated with a specific diagnosis that is being evaluated, monitored, or treated as if it exists) are acceptable and can be coded in the inpatient setting, when documented at the
time of discharge.
Thank you,
Roz Pyle RN BSN CCDS
CDI Specialist
Please contact via tiger text
Please use your independent medical judgment in providing your response.
[2025-01-20] MEDS: OMNIPAQUE 50 ML PO (13:34)
--- NOTE | 2025-01-20 13:47 | PTCARENOTE ---
pt returned from GI lab AOx3 SB on monitor 128/79 91%RA. CLD, Oral contrast started CT scan later. CB in reach, reminded to use
--- NOTE | 2025-01-20 17:00 | PTCARENOTE ---
Assumed care of patient at 14:15. Assessment completed and documented shift assessment.
Patient post-CT. Awaiting results and concerned about colonoscopy/EGD results as any discussion had was when he was coming off sedation. Reached out to GI.
--- NOTE | 2025-01-20 17:28 | W.PN.HOSP.TC ---
Today's Communication/Plan
-
Assessment / Plan
Assessment / Plan
NAD
Scleral Anicteric
MMM
No JVD
CTABL
RRR, S1/S2
Soft, NT, ND, BS+
Warm, Dry
AAOx3
Calm
Chronic microcytic anemia on acute blood loss anemia suspect upper versus lower GI bleed
S/p PRBC�4u
Twice daily IV PPI while
2 large-bore IVs
IV fluids
Bidirectional scope planned for 01/20
Hold Eliquis
S/p C-scope demonstrating rectal mass bleeding.
Rectal mass
Confirmed on CT and Direct visualization
High suspicion neoplastic
Bx obtained - follow path
Colorectal surgery consulted
Tumor markers
Paroxysmal atrial fibrillation
Hold Eliquis
Continue beta-sabrina
CAD DILAN with known history of V-fib arrest
S/p PCI cardiology consulted
Anticipated Discharge: > 48 hours
Subjective/Interval History
-
Date of Service: January 20, 2025
Seen and examined sitting in bedside chair no new complaints no acute overnight events.
Objective Data
-
Vital Signs:
Vital Signs
Temp Pulse Resp BP Pulse Ox
97 F 61 21 145/61 97
01/20/25 12:35 01/20/25 16:36 01/20/25 16:36 01/20/25 16:36 01/20/25 16:36
I&O
01/19/25 01/20/25 01/21/25
06:59 06:59 06:59
Intake Total 750 / 750 6890 / 6890
Output Total 400 / 400 2500 / 2500
Balance 350 / 350 4390 / 4390
--- NOTE | 2025-01-20 17:38 | CM ---
F/U: No need for PT/OT and patient thus far has no DC needs. No indication of when the patient will discharge yet. PLAN: Anticipate Home No Needs.
[2025-01-21] VITALS (14 sets, daily range): BP systolic 102–147; BP diastolic 56–87; BMI 23.0
[2025-01-21 04:47] LABS: Hematocrit 26.2 % (39.0-52.0); Hemoglobin 7.8 g/dL (13.0-18.0); Mean Corp Hgb Conc. 29.8 g/dL (33.0-37.0); Mean Corpuscular Volume 65.2 fL (80.0-94.0); Platelet Count 260 10^3/uL (130-400); Red Cell Dist. Width 27.0 % (11.5-14.5)
[2025-01-21] MEDS: TOPROL XL 25 MG PO (08:23)
[2025-01-21] MEDS: NSS (PRESERVATIVE FREE) 10 ML IV ×2 (08:23→20:32)
[2025-01-21] MEDS: PROTONIX IV 40 MG IV ×2 (08:24→20:32)
[2025-01-21] MEDS: FLUSH (NSS) 2 FLUSH IV (08:25)
--- NOTE | 2025-01-21 10:04 | PTCARENOTE ---
Assumed care of pt at walking rounds and received him sitting up in bedside chair. He is alert and oriented x3, denies pain. Pt reports he did pass approx 3 Bms during the night that had blood noted in bottom of toilet. He will notify staff to
observe stool if he passes any more this morning. Sinus Minesh on monitor, resp even and regular on room air. No cough present. ABD is soft with hyperactive bowel tones. not tender but 'cramping' discomfort at times. Pt awaiting to have conversation
with physicians about the rectal mass and moving forward with plan of care and treatment. Pt reports that he does live alone but has Siblings and children that may be able to assist him if needed at discharge.
--- NOTE | 2025-01-21 13:03 | CON.CRS ---
Consultation
-
Date/Time Consultation Performed: 01/21/25 1020
Medical History
-
Chief Complaint: rectal bleeding
History of Present Illness:
Mr Henry is a 64 yo male who has a h/o CAD s/p PCI to RCA 2021, recent dx of AF with cardioversion and started on Eliquis who presents with dizziness, sob, and chest pain and was found to be profoundly anemic. He notes that over the past few weeks
he was passing blood intermittently in his stools, sometimes a lot and sometimes just a little. AC was held and he was transfused with 4 units of pRBCs with EGD and colonoscopy after Eliquis washout yesterday. He was noted to have an ulcerating
malignant appearing mass about 20-25cm proximal to the anus with a large polyp close by. The mass was noted to be oozing as well as partially obstructing. He denies abdominal pain but does note some pelvic soreness. He denies nausea or vomiting. He
notes some blood in his stool today.
Past Medical History
Past Medical History: Arrhythmias (PAF (recent dx)), CAD and LA (STEMI with VF arrest s/p PCI to RCA in 2021)
Past Surgical History: Cardiac (PCI with overlapping 4.0 x 12 mm and 3.5 x 28 mm Xience stents to mid RCA 05/04/21, Cardioversion 01/2025)
Social History
Tobacco: Non-Smoker
Alcohol: None
Living: Alone (children close by)
Family History
Family History: Cancer (no family hx of colon ca)
Allergies / Home Medications
Allergy/AdvReac Type Severity Reaction Status Date / Time
No Known Allergies Allergy Verified 01/18/25 17:07
�Medication �Instructions �Recorded �Confirmed �Type
metoprolol succinate 25 mg 25 mg PO DAILY ##90 05/13/21 01/18/25 Rx
tablet,extended release 24 hr
(Toprol XL)
apixaban 5 mg tablet (Eliquis) 5 mg PO BID Blood Clot 01/09/25 01/18/25 History
Prevention/Tx
Review of Systems
-
History Source: Patient
All other systems: Negative unless noted
A 10 point review of systems was completed, and was negative except as per HPI.
Physical Exam
Vital Signs
Temp 97.8 F 01/21/25 11:29
Pulse 62 01/21/25 08:23
Resp Rate 20 01/20/25 18:00
Blood pressure 133/79 01/21/25 08:23
SaO2 95 01/20/25 21:40
Body Mass Index (BMI) 23.0
Lab Results / Allergies
01/21/25 04:27
01/20/25 04:37
WBC 6.5 10^3/uL (4.8-10.8) 01/21/25 04:27
Hgb 7.8 g/dL (13.0-18.0) L 01/21/25 04:27
Hct 26.2 % (39.0-52.0) L 01/21/25 04:27
Plt Count 260 10^3/uL (130-400) 01/21/25 04:27
Abs Immat Gran (auto) 0.0 10^3/uL (0-0.05) 01/18/25 17:14
Neutrophils % 72.7 % (42.2-75.2) 01/18/25 17:14
Allergy/AdvReac Type Severity Reaction Status Date / Time
No Known Allergies Allergy Verified 01/18/25 17:07
Physical Exam
General: Well Developed and Well Nourished
HEENT: Normocephalic and Moist Mucous Membranes
GI: Soft, Non Distended and Tender (mild pelvic tenderness)
Skin: Warm and Dry
Neuro: Awake, Alert and AO x 3
Psych: Calm
Assessment / Plan
-
64 yo male recently started on AC for PAF presenting with cp/sob/ogden with bloody stools and anemia with initial hemoglobin of 4.9 now s/p 4 units pRBCs. Hemoglobin relatively stable but drifting down. AC was held and he was with EGD and colonoscopy
after Eliquis washout yesterday. He was noted to have an ulcerating malignant appearing mass about 20-25cm proximal to the anus with a large polyp close by. The mass was noted to be oozing as well as partially obstructing. He notes some blood in his
stool today. CT chest without evidence of malignancy. CT abd pelvis with mass present, which is likely rectal without evidence of mets. Afebrile. Vitals stable.
Plan:
Continue malignant work up with CEA and MRI pelvis. Oncology consult placed
Clears today
NPO after MN for flex sigmoidoscopy for further evaluation of mass
Continue with AC on hold
Path from colonoscopy on 01/20 pending
--- NOTE | 2025-01-21 13:28 | CON.ONC ---
Consultation
-
Date Consultation Requested: 01/21/25
Date Consultation Performed: 01/21/25
Requesting Provider: Vivian HERNDON
Performing Provider: Dr. Edgar
Reason for Consultation: rectal mass
Impression
Impression
rectal mass
microcytic iron deficiency anemia
GI bleed
prostate enlargement
CAD
afib
Plan
Plan
1. Rectal mass -
-s/p colonoscopy - await pathology
-CT C/A/P - no definitive evidence of metastatic disease
-colorectal surgery following - MRI pelvis pending
-check CEA
-once pathology/ additional MRI imaging complete - discussion will need to be had w/ colorectal surgery regarding potential role for neoadjuvant treatment approach
2. Iron deficiency anemia in setting of GI bleed
-IV iron repletion therapy ordered
-follow CBC
3. Prostate enlargement - check PSA
Will continue to follow with you.
Patient History
History of Present Illness
64y/o male seen in hematology/ oncology consultation today regarding rectal mass.
The patient presented to the [facility] on 01/18/25 w/ exertional dyspnea and hemoglobin of 4.9g/dl. He was transfused and underwent colonoscopy 01/20 revealing a likely malignant partially obstructing tumor in the from 20 to 25 cm proximal to the
anus.Biopsies were taken w/ pathology pending. CT imaging of the chest/ abdomen/ pelvis was performed revealing a rectal mass suspicious for neoplasm. No findings highly suspicious for metastatic disease in the chest, abdomen or pelvis. Prostate
median lobe hypertrophy bulging into the bladder base of unclear etiology.
He has been seen by colorectal surgery and MRI pelvis is pending.
His CBC has improved after transfusion of 4 units of PRBCs, w/ hemoglobin today of 7.8g/dl. It is noted that iron studies on admission did reveal iron deficiency w/ ferritin of 4.6.
He had been on anticoagulation for cardiac issues, which is on hold for now.
Clinically, he feels better. Denies SOB at rest or chest pain. No palpitations. No abdominal pain. He notes some occasional blood mixed with stool. He notes some recent weight loss.
Past-Medical/Surgical History
PMH:
CAD
STEMI status post RCA PCI in 2021
hyperlipidemia
recent diagnosis symptomatic afib - s/p cardioversion 01/09/2025
HTN
PSH:
Cardiac stents
cardioversion 01/09/25
Social History
Tobacco: Non-Smoker
Alcohol: Former (social on past )
Family History
Family History: Other (mother with GI bleed, no family hx colon CA or polyps)
Allergies:
NKDA
Patient Medication
�Medication �Instructions �Recorded �Confirmed �Last Taken �Type
metoprolol succinate 25 mg 25 mg PO DAILY ##90 05/13/21 01/18/25 01/18/25 Rx
tablet,extended release 24 hr
(Toprol XL)
apixaban 5 mg tablet (Eliquis) 5 mg PO BID Blood Clot 01/09/25 01/18/25 01/18/25 History
Prevention/Tx
Active Medications
Generic Name Dose Route Start Last Admin
Trade Name Freq PRN Reason Stop Dose Admin
Ferric Sodium Gluconate 110 mls @ 110 mls/hr 01/21/25 14:00
Complex 125 mg/ Sodium IV 01/25/25 14:59
Chloride DAILY@1400 CHRYSTAL
Metoprolol Succinate 25 mg 01/19/25 08:00 01/21/25 08:23
Metoprolol 25 Mg Extended Release Tablet PO 02/16/25 07:59 25 mg
DAILY CHRYSTAL Administration
Pantoprazole Sodium 40 mg 01/18/25 22:00 01/21/25 08:24
Pantoprazole Sodium 40 Mg/10 Ml Vial IV 02/15/25 21:59 40 mg
BID CHRYSTAL Administration
Sodium Biphosphate/Sodium Phosphate 135 ml 01/22/25 06:00
Fleet Phosphate Enema (Adult) 135 Ml Bottle RECTAL 01/22/25 06:01
ONCE ONE
Sodium Chloride 10 ml 01/18/25 22:00 01/21/25 08:23
Sodium Chloride 0.9% (Preservative Free) 10 Ml Vial IV 02/15/25 21:59 10 ml
BID CHRYSTAL Administration
Sodium Chloride 0 flush 01/18/25 22:00 01/21/25 08:25
Sodium Chloride 0.9% (Flush) Syringe IV 02/15/25 21:59 2 flush
PER PROTOCOL CHRYSTAL Administration
Review of Systems
-
A ROS was performed w/ pertinent findings as per HPI.
Physical Exam
-
General: Well Developed and No Apparent Distress
HEENT: Negative Jaundice
Cardiology: Normal Sinus Rhythm
Pulmonary: Clear
Extremities: No C/C/E
Neurology: Non Focal
Labs
Lab Results
WBC 6.5 10^3/uL (4.8-10.8) 01/21/25 04:27
RBC 4.02 10^6/uL (4.70-6.10) L 01/21/25 04:27
Hgb 7.8 g/dL (13.0-18.0) L 01/21/25 04:27
Hct 26.2 % (39.0-52.0) L 01/21/25 04:27
MCV 65.2 fL (80.0-94.0) L 01/21/25 04:27
MCH 19.4 pg (27.0-31.0) L 01/21/25 04:27
MCHC 29.8 g/dL (33.0-37.0) L 01/21/25 04:27
RDW 27.0 % (11.5-14.5) H 01/21/25 04:27
Plt Count 260 10^3/uL (130-400) 01/21/25 04:27
MPV Not Reportable 01/21/25 04:27
Abs Immat Gran (auto) 0.0 10^3/uL (0-0.05) 01/18/25 17:14
Absolute Neuts (auto) 3.8 10^3/uL (1.4-6.5) 01/18/25 17:14
Absolute Lymphs (auto) 0.8 10^3/uL (1.2-3.4) L 01/18/25 17:14
Absolute Monos (auto) 0.4 10^3/uL (0.1-0.6) 01/18/25 17:14
Absolute Eos (auto) 0.2 10^3/uL (0-0.7) 01/18/25 17:14
Absolute Basos (auto) 0.1 10^3/uL (0-0.2) 01/18/25 17:14
Immature Gran % 0.4 % (0-0.5) 01/18/25 17:14
Neutrophils % 72.7 % (42.2-75.2) 01/18/25 17:14
Lymphocytes % 15.3 % (20.5-51.1) L 01/18/25 17:14
Monocytes % 6.9 % (1.7-9.3) 01/18/25 17:14
Eosinophils % 3.6 % (0-6) 01/18/25 17:14
Basophils % 1.1 % (0-2) 01/18/25 17:14
Creatinine 0.9 mg/dL (0.7-1.3) 01/20/25 04:37
Vital Signs
Vital Signs
Temp Pulse Resp BP Pulse Ox
97.8 F 62 20 133/79 95
01/21/25 11:29 01/21/25 08:23 01/20/25 18:00 01/21/25 08:23 01/20/25 21:40
[2025-01-21] MEDS: FERRLECIT 110 MG IV (14:41)
--- NOTE | 2025-01-21 16:45 | W.PN.CARDCBS ---
Today's Communication / Plan
-
Start amiodarone for recurrent A-fib
No anticoagulation at present
Proceed with oncologic evaluation
Would be okay for hemicolectomy if needed from cardiac standpoint
Impression / Plan
-
Primary Fish Hatchery Manager: Dr. Washington
Assessment:
Presentation with CP, SOB, dizziness
Acute anemia
Heme positive stool, presumed GIB
Recent diagnosis symptomatic paroxysmal atrial fibrillation
Status post successful cardioversion 01/09/2025
OAC with eliquis
CAD status post STEMI with RCA PCI 2021
Hyperlipidemia
Moderate MR
Mild hyponatremia
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
Echo 12/29/2024: EF 55 to 60%, mild to moderate MR, severely dilated LA, aortic sclerosis, dilated RV, PAP 32 mmHg
Plan:
He likely has colon cancer, evaluation currently in progress
Unfortunately, atrial fibrillation has recurred as of noon. He is not anticoagulated. Best option may be to quickly reestablish sinus rhythm if possible, will begin IV amiodarone. If sinus rhythm can be restored within 24 hours likelihood of
cardioembolic complications will be low.
Eventually restart anticoagulation.
If patient requires hemicolectomy/sigmoidectomy etc. he could proceed at acceptable cardiac risk.
We will continue to follow.
Progress Note - Fish Hatchery Manager
Subjective
Date of Service: January 21, 2025: : Labs, meds, etc. reviewed. Hemoglobin is 7.8, BUN/creatinine of 12 and 0.9,
133/79, respiratory 20, pulse 62 afebrile, head neck exam unremarkable, lungs are clear, Soft MR murmur irregular rate, JVD carotids okay no edema
Objective
Labs:
01/21/25 04:27
01/20/25 04:37
Labs
Hgb 7.8 g/dL (13.0-18.0) L 01/21/25 04:27
Hct 26.2 % (39.0-52.0) L 01/21/25 04:27
Plt Count 260 10^3/uL (130-400) 01/21/25 04:27
PT 14.4 Sec (11.4-14.6) 01/20/25 04:37
INR 1.14 01/20/25 04:37
Sodium 135 mmol/L (135-145) 01/20/25 04:37
Potassium 4.3 mmol/L (3.5-5.1) 01/20/25 04:37
BUN 12 mg/dl (9-20) 01/20/25 04:37
Creatinine 0.9 mg/dL (0.7-1.3) 01/20/25 04:37
Glucose 86 mg/dl (70-99) 01/20/25 04:37
Troponins
01/18/25
17:14
Troponin I 0.018
Vital Signs and I&O:
Vital Signs
Temp Pulse Resp BP Pulse Ox
36.4 C 62 20 133/79 97
01/21/25 14:56 01/21/25 08:23 01/20/25 18:00 01/21/25 08:23 01/21/25 08:20
Vital Signs
Temp Pulse Resp BP Pulse Ox
36.4 C 62 20 133/79 97
01/21/25 14:56 01/21/25 08:23 01/20/25 18:00 01/21/25 08:23 01/21/25 08:20
Intake & Output
01/19/25 01/20/25 01/21/25 01/22/25
07:59 07:59 07:59 07:59
Intake Total 750 / 750 6890 / 6890
Output Total 400 / 400 2500 / 2500
Balance 350 / 350 4390 / 4390
Physical Exam
Physical Exam
See above
[2025-01-21 17:08] LABS: PSA, Total - Diagnostic 7.15 ng/ml (0.0-4.0)
[2025-01-21] MEDS: CORDARONE 103 MG IV (17:28)
--- NOTE | 2025-01-21 17:52 | PTCARENOTE ---
patient heart rhythm converted from NSR TO A-FIB today, confirmed with EKG. Dr. AIDAN Joel aware and ordered Amiodarone, new IV site obtained in RT FOREARM -Bolus infusing at this time,
[2025-01-21] MEDS: CORDARONE 259 MG IV (18:11)
[2025-01-22] VITALS (13 sets, daily range): BP systolic 104–150; BP diastolic 59–79
--- NOTE | 2025-01-22 04:03 | PTCARENOTE ---
amnio gtt infusing at 0.5. HR high 50s low 60s at times. Notified JOB TRAINER. Keeping gtt infusing. patient aaox3. NPO since midnight for flexsig today. patient has no complaints overnight. assessment and vitals charted. call ball in reach.
[2025-01-22] MEDS: FLEET PHOSPHATE ENEMA-ADULT 135 ML RECTAL (04:58)
[2025-01-22] MEDS: CORDARONE 259 MG IV (05:10)
[2025-01-22 05:33] LABS: Hematocrit 29.7 % (39.0-52.0); Hemoglobin 8.9 g/dL (13.0-18.0); Mean Corp Hgb Conc. 30.0 g/dL (33.0-37.0); Mean Corpuscular Volume 64.7 fL (80.0-94.0); Platelet Count 303 10^3/uL (130-400); Red Cell Dist. Width 28.2 % (11.5-14.5)
[2025-01-22 05:52] LABS: Blood Urea Nitrogen 5 mg/dl (9-20); Calcium 9.0 mg/dl (8.4-10.2); Carbon Dioxide 22 mmol/L (22-30); Chloride 108 mmol/L (98-107); Estimated Creatinine Clearance 105 ml/min; Glucose 90 mg/dl (70-99); Potassium 4.2 mmol/L (3.5-5.1); Sodium 136 mmol/L (135-145); eGFR > 60.00
--- NOTE | 2025-01-22 08:00 | PTCARENOTE ---
Received morning report and note patient's heart rate in the 40's and Sinus Bradycardia. BP 104/63 patient sleeping but arouses easily to voice. EKG COMPLETED and confirms SB. Amio gtt stopped per protocol and Dr. AIDAN Joel notified.
[2025-01-22] MEDS: PROTONIX IV 40 MG IV ×2 (08:28→21:52)
[2025-01-22] MEDS: NSS (PRESERVATIVE FREE) 10 ML IV ×2 (08:28→21:52)
[2025-01-22] MEDS: TOPROL XL PO (10:07)
--- NOTE | 2025-01-22 11:30 | VATNOTE ---
PT WITH LAC IV SITE RED, TENDER. IV REMOVED, HEAT APPLIED, ARM ELEVATED, WILL CON TO MONITOR
--- NOTE | 2025-01-22 12:37 | PTCARENOTE ---
Patient transported to GI lab via stretcher
--- NOTE | 2025-01-22 13:19 | W.PN.UPDATE ---
Update Note
Progress Note Update
Flexible sigmoidoscopy complete. Tumor confirmed to be in the rectum with a distal margin 7 or 8 cm from anal verge--barely palpable on CRYSTAL. Is 2/3 circumferential and able to be traversed. Also with 3 cm pedunculated polyp a bit distal at most
distal rectal valve (?6 cm from verge). Tattoo was difficult to visualize--more obvious proximal to tumor than distally. Patient updated and patient's son updated via VM. Rectal MRI is appropriate for locoregional staging. Further plans from
there. Starting low residue diet also.
--- NOTE | 2025-01-22 14:29 | W.PN.CARDCBS ---
Today's Communication / Plan
-
Stop metoprolol
Oral amiodarone 200 mg twice daily
No anticoagulation
Impression / Plan
-
Primary Process Safety Engineer: Dr. Washington
Assessment:
Presentation with CP, SOB, dizziness
Acute anemia
Heme positive stool, presumed GIB
Recent diagnosis symptomatic paroxysmal atrial fibrillation
Status post successful cardioversion 01/09/2025
OAC with eliquis
CAD status post STEMI with RCA PCI 2021
Hyperlipidemia
Moderate MR
Mild hyponatremia
Rectal carcinoma
Elevated PSA
Echo 12/29/2024: EF 55 to 60%, mild to moderate MR, severely dilated LA, aortic sclerosis, dilated RV, PAP 32 mmHg
Plan:
He had atrial fibrillation last night, was started on IV amiodarone and is converted to sinus rhythm. Heart rate initially bradycardic, now acceptable. IV amiodarone is off and metoprolol has been held.
Will keep off metoprolol long-term. Continue amiodarone 200 mg twice daily for 4 weeks then 200 mg daily.
Now that he is back in sinus rhythm, cardioembolic risk is low, continue to hold anticoagulation.
His hemoglobin is stable. When stable postoperatively, resume Eliquis.
Okay to proceed with oncologic evaluation, and okay to proceed for laparotomy/low anterior resection/etc. from a cardiac standpoint at acceptable cardiac risk.
We will continue to follow.
Progress Note - Process Safety Engineer
Subjective
Date of Service: January 22, 2025: 64-year-old man who underwent cardioversion for persistent atrial fibrillation December 28, admitted with dyspnea, chest discomfort palpitations and found to have hemoglobin of 4.9. Colonoscopy revealed rectal
cancer, patient now undergoing evaluation.
PMH: PAF, inferior MS 2021 treated with RCA PCI, hyperlipidemia, mild to moderate MR
Current meds: Amiodarone, stopped, metoprolol ER 25 mg daily, pantoprazole, iron IV
104/63, pulse 50 now sinus bradycardia, was treated with amiodarone for recurrent A-fib, respiratory rate 20 afebrile, head neck exam unremarkable, lungs are clear, soft systolic murmur at apex, abdomen benign extremities without edema,
ECG now, sinus bradycardia otherwise normal ECG Haris 6 A-fib with controlled ventricular response
Hemoglobin 8.9, BUN and creatinine 5 and 0.8, potassium 4.2, PSA is 7.15 CEA pending
Objective
Labs:
01/22/25 05:19
01/22/25 05:19
Labs
Hgb 8.9 g/dL (13.0-18.0) L 01/22/25 05:19
Hct 29.7 % (39.0-52.0) L 01/22/25 05:19
Plt Count 303 10^3/uL (130-400) 01/22/25 05:19
PT 14.4 Sec (11.4-14.6) 01/20/25 04:37
INR 1.14 01/20/25 04:37
Sodium 136 mmol/L (135-145) 01/22/25 05:19
Potassium 4.2 mmol/L (3.5-5.1) 01/22/25 05:19
BUN 5 mg/dl (9-20) L 01/22/25 05:19
Creatinine 0.8 mg/dL (0.7-1.3) 01/22/25 05:19
Glucose 90 mg/dl (70-99) 01/22/25 05:19
Vital Signs and I&O:
Vital Signs
Temp Pulse Resp BP Pulse Ox
36.7 C 50 20 104/63 96
01/22/25 11:49 01/22/25 10:07 01/20/25 18:00 01/22/25 06:51 01/22/25 12:08
Vital Signs
Temp Pulse Resp BP Pulse Ox
36.7 C 50 20 104/63 96
01/22/25 11:49 01/22/25 10:07 01/20/25 18:00 01/22/25 06:51 01/22/25 12:08
Intake & Output
01/20/25 01/21/25 01/22/25 01/23/25
07:59 07:59 07:59 07:59
Intake Total 6890 / 6890 103 / 103
Output Total 2500 / 2500 1500 / 1500 425 / 425
Balance 4390 / 4390 -1397 / -1397 -425 / -425
Physical Exam
Physical Exam
See above
[2025-01-22] MEDS: FERRLECIT 110 MG IV (14:58)
--- NOTE | 2025-01-22 15:11 | W.PN.HOSP.TC ---
Addendum entered and electronically signed by Aguilar Peng MD 01/22/25 15:20:
ABLA/GI bleed is enhanced by/associated with/due to Eliquis
Original Note:
Today's Communication/Plan
-
Assessment / Plan
Assessment / Plan
NAD
Scleral Anicteric
MMM
No JVD
CTABL
RRR, S1/S2
Soft, NT, ND, BS+
Warm, Dry
AAOx3
Calm
Chronic microcytic anemia on acute blood loss anemia suspect upper versus lower GI bleed
S/p PRBC�4u
Twice daily IV PPI while
2 large-bore IVs
IV fluids
Bidirectional scope planned for 01/20
Hold Eliquis
S/p C-scope demonstrating rectal mass bleeding.
Rectal mass
Confirmed on CT and Direct visualization
High suspicion neoplastic
Bx obtained - follow path
Colorectal surgery following
Flex sig completed today on 01/22/2025
Surgery has recommended rectal MRI for regional staging and then we will plan from there
Tumor markers
Paroxysmal atrial fibrillation
Hold Eliquis
Continue beta-sabrina
CAD DILAN with known history of V-fib arrest
S/p PCI cardiology consulted
Anticipated Discharge: > 48 hours
Subjective/Interval History
-
Date of Service: January 22, 2025
Seen and examined. No new complaints. No acute overnight events
Objective Data
-
Labs:
Laboratory Results
01/22/25
05:19
WBC 6.5
Hgb 8.9 L
Hct 29.7 L
Plt Count 303
Sodium 136
Potassium 4.2
Chloride 108 H
Carbon Dioxide 22
BUN 5 L
Creatinine 0.8
Glucose 90
Calcium 9.0
Vital Signs:
Vital Signs
Temp Pulse Resp BP Pulse Ox
98.0 F 50 20 104/63 96
01/22/25 11:49 01/22/25 10:07 01/20/25 18:00 01/22/25 06:51 01/22/25 12:08
I&O
01/21/25 01/22/25 01/23/25
06:59 06:59 06:59
Intake Total 103 / 103
Output Total 1500 / 1500 425 / 425
Balance -1397 / -1397 -425 / -425
--- NOTE | 2025-01-22 15:14 | PTCARENOTE ---
Patient returned from GI lab without event. Alert and oriented x 3. SB on monitor, 97% room air. Pt denies pain at this time. New INT in right hand. Pt okay to resume diet, he tolerated 100% of low residue diet.
[2025-01-22] MEDS: PACERONE 200 MG PO (21:55)
--- NOTE | 2025-01-22 23:03 | PTCARENOTE ---
Assumed care of patient from maryjo RN. Pt aaox3. Sinus ariana on the tele monitor. SpO2 96% on RA. Education provided about medications administered. Able to make needs known and is resting in bed with call ball in reach.
[2025-01-23] VITALS (9 sets, daily range): BP systolic 95–150; BP diastolic 50–87; BMI 22.2
[2025-01-23 06:57] LABS: Hematocrit 27.7 % (39.0-52.0); Hemoglobin 8.3 g/dL (13.0-18.0); Mean Corp Hgb Conc. 30.0 g/dL (33.0-37.0); Mean Corpuscular Volume 67.6 fL (80.0-94.0); Platelet Count 279 10^3/uL (130-400); Red Cell Dist. Width 28.6 % (11.5-14.5)
[2025-01-23 07:49] LABS: Blood Urea Nitrogen 7 mg/dl (9-20); Calcium 8.4 mg/dl (8.4-10.2); Carbon Dioxide 23 mmol/L (22-30); Chloride 108 mmol/L (98-107); Estimated Creatinine Clearance 105 ml/min; Glucose 82 mg/dl (70-99); Potassium 4.1 mmol/L (3.5-5.1); Sodium 135 mmol/L (135-145); eGFR > 60.00
[2025-01-23] MEDS: PACERONE 200 MG PO ×2 (08:19→20:29)
[2025-01-23] MEDS: PROTONIX IV 40 MG IV (08:20)
[2025-01-23] MEDS: NSS (PRESERVATIVE FREE) 10 ML IV (08:20)
--- NOTE | 2025-01-23 10:22 | W.PN.HOSP.TC ---
Today's Communication/Plan
-
Stable for telemetry
Assessment / Plan
Assessment / Plan
#Chronic microcytic anemia mixed with acute blood loss anemia due to rectal mass
S/p PRBC�4u
Appreciate GI input, s/p C-scope demonstrating rectal mass 01/20/25 w/ Dr. Chloe Henry
Hold Eliquis.
Seen by hematology, continue IV iron, trend hemoglobin, transfuse as needed
#Rectal mass
Confirmed on CT and Direct visualization
S/p C-scope demonstrating rectal mass 01/20/25 w/ Do - f/u pathology results
S/p Flex sig 01/22/25 w/ Dr. Biggs
CRS has recommended rectal MRI for regional staging
F/u CEA, PSA elevated at 7.15
#Paroxysmal atrial fibrillation
Seen by cardiology, hold Eliquis
Toprol XL changed to amiodarone by cardiology
#CAD DILAN
#Known history of V-fib arrest
S/p PCI
DVT prophylaxis�SCD secondary to rectal bleeding
Full code
Total time spent to see the patient on the floor, examine the patient, review data and lab results, discuss treatment plan with patient, nursing staff around 37 minutes.
Physical Exam
General: No acute distress
HEENT: Normocephalic, Atraumatic, EOMI, MMM
Respiratory: Clear to Auscultation bilaterally
Cardiac: Normal S1/S2, Regular Rate and Rhythm
GI: Soft, Nontender, Nondistended, Normal Bowel Sounds
Extremities: No Clubbing, Cyanosis, or Edema
Neuro: Nonfocal/Grossly Intact
Psych: Calm, Cooperative
Anticipated Discharge: 24 - 48 hours
Subjective/Interval History
-
Date of Service: January 23, 2025
Patient continues to have bloody stools from his rectal mass. He denies chest pain, denies shortness of breath. No lightheadedness, no dizziness. No fever, no vomiting.
Objective Data
-
Labs:
Laboratory Results
01/23/25
06:27
WBC 5.7
Hgb 8.3 L
Hct 27.7 L
Plt Count 279
Sodium 135
Potassium 4.1
Chloride 108 H
Carbon Dioxide 23
BUN 7 L
Creatinine 0.8
Glucose 82
Calcium 8.4
Vital Signs:
Vital Signs
Temp Pulse Resp BP Pulse Ox
97.8 F 67 20 134/67 97
01/23/25 07:30 01/23/25 08:19 01/20/25 18:00 01/23/25 08:19 01/22/25 22:58
I&O
01/22/25 01/23/25 01/24/25
06:59 06:59 06:59
Intake Total 103 / 103 960 / 960
Output Total 1500 / 1500 625 / 625 300 / 300
Balance -1397 / -1397 335 / 335 -300 / -300
--- NOTE | 2025-01-23 10:55 | W.PN.ONC2 ---
Today's Communication / Plan
-
.
Impression
Impression
rectal mass
microcytic iron deficiency anemia - Hgb 8.3 s/p 4U PRBC during hospitalization
GI bleed
prostate enlargement
CAD
afib
Plan
Plan
1. Rectal mass -
-s/p colonoscopy - await pathology
-CT C/A/P - no definitive evidence of metastatic disease
-colorectal surgery following - MRI pelvis pending
-check CEA
-once pathology/ additional MRI imaging complete - discussion will need to be had w/ colorectal surgery regarding potential role for neoadjuvant treatment approach
2. Iron deficiency anemia in setting of GI bleed
-continue IV iron repletion
-follow CBC
3. Prostate enlargement - PSA 7.15, improved from 8.20 November 2024
Subjective/Objective
Subjective
afebrile, no hypoxia or hypotension
denies pain
Vital Signs:
Vital Signs
Temp Pulse Resp BP Pulse Ox
97.8 F 67 20 134/67 97
01/23/25 07:30 01/23/25 08:19 01/20/25 18:00 01/23/25 08:19 01/22/25 22:58
Lab Results:
Laboratory Data
WBC 5.7 10^3/uL (4.8-10.8) 01/23/25 06:27
Hgb 8.3 g/dL (13.0-18.0) L 01/23/25 06:27
Plt Count 279 10^3/uL (130-400) 01/23/25 06:27
PT 14.4 Sec (11.4-14.6) 01/20/25 04:37
INR 1.14 01/20/25 04:37
eGFR > 60.00 01/23/25 06:27
Physical Exam
HEENT: No Jaundice
Pulmonary: Other (unlabored)
GI: Soft
Extremities: Pulses Present
--- NOTE | 2025-01-23 11:00 | W.PN.CRS1 ---
Today's Communication / Plan
-
MRI pending
plans to follow
Assessment/Plan
-
64 yo male recently started on AC for PAF presenting with cp/sob/ogden with bloody stools and anemia with initial hemoglobin of 4.9 now s/p 4 units pRBCs. Hemoglobin relatively stable but drifting down. AC was held and he was with EGD and colonoscopy
after Eliquis washout yesterday. He was noted to have an ulcerating malignant appearing mass about 20-25cm proximal to the anus with a large polyp close by. The mass was noted to be oozing as well as partially obstructing. He notes some blood in his
stool today. CT chest without evidence of malignancy. CT abd pelvis with mass present, which is likely rectal without evidence of mets. Afebrile. Vitals stable.
01/20/2025- CT C/A/P: negative for metastasis
01/22/2025- Rectal mass 7.5 cm from the anal verge. Likely malignant partially obstructing tumor in the rectum.
Plan:
-Continue malignant work up with CEA and MRI pelvis.
-Appreciate oncology
-Continue low residue diet
-Continue with AC on hold
-Path from colonoscopy on 01/20 pending
-Plans to follow post MRI
Subjective Data
Subjective Data
Date of Service: January 23, 2025
Patient states he feels well. No complaints. Denies any rectal bleeding.
Objective Data
-
Vital Signs
Temp Pulse Resp BP Pulse Ox
97.8 F 67 20 134/67 97
01/23/25 07:30 01/23/25 08:19 01/20/25 18:00 01/23/25 08:19 01/22/25 22:58
Intake & Output
01/22/25 01/23/25 01/24/25
06:59 06:59 06:59
Intake Total 103 / 103 960 / 960
Output Total 1500 / 1500 625 / 625 300 / 300
Balance -1397 / -1397 335 / 335 -300 / -300
Intake:
Oral fluids 960 / 960
IV piggybacks 103 / 103
Output:
Urine, Voided 1500 / 1500 625 / 625 300 / 300
Other:
Number of approximated MODERATE 1
amounts of urine
Lab Results
01/23/25 06:27
01/23/25 06:27
Physical Exam
-
General: No Acute Distress and AOx3
Abdomen: Soft, Non Distended and Non Tender
Skin: Warm and Dry
--- NOTE | 2025-01-23 12:31 | W.PN.CARDCBS ---
Today's Communication / Plan
-
No new cardiac recommendations
We will follow from a distance and reassess postoperatively
Impression / Plan
-
Primary Lard Renderer: Dr. Washington
Assessment:
Presentation with CP, SOB, dizziness
Acute anemia
Heme positive stool, presumed GIB
Recent diagnosis symptomatic paroxysmal atrial fibrillation
Status post successful cardioversion 01/09/2025
OAC with eliquis
CAD status post STEMI with RCA PCI 2021
Hyperlipidemia
Moderate MR
Mild hyponatremia
Rectal carcinoma
Elevated PSA
Echo 12/29/2024: EF 55 to 60%, mild to moderate MR, severely dilated LA, aortic sclerosis, dilated RV, PAP 32 mmHg
Plan:
Doing well from a cardiac standpoint, in sinus rhythm on amiodarone.
Metoprolol has been stopped.
He remains off anticoagulation, which is appropriate.
Evaluation for rectal cancer in progress.
Okay to proceed to the OR if needed for resection of rectal cancer.
We will follow from a distance at present, and reassess postop.
Progress Note - Lard Renderer
Subjective
Date of Service: January 23, 2025:
64-year-old man who underwent cardioversion for persistent atrial fibrillation December 28, admitted with dyspnea, chest discomfort palpitations and found to have hemoglobin of 4.9. Colonoscopy revealed rectal cancer, patient now undergoing
evaluation.
PMH: PAF, inferior [place] 2021 treated with RCA PCI, hyperlipidemia, mild to moderate MR
Current meds: Amiodarone 200 mg twice daily, pantoprazole, iron IV
104/50, respiratory rate 20, pulse 54-60, he offers no complaints, afebrile, head neck exam unremarkable, mild MR murmur, abdomen benign, extremities without clubbing cyanosis or edema
Hemoglobin 8.3, MCV 67, BUN and creatinine 7 and 0.8, potassium 4.1
Objective
Labs:
01/23/25 06:27
01/23/25 06:27
Labs
Hgb 8.3 g/dL (13.0-18.0) L 01/23/25 06:27
Hct 27.7 % (39.0-52.0) L 01/23/25 06:27
Plt Count 279 10^3/uL (130-400) 01/23/25 06:27
PT 14.4 Sec (11.4-14.6) 01/20/25 04:37
INR 1.14 01/20/25 04:37
Sodium 135 mmol/L (135-145) 01/23/25 06:27
Potassium 4.1 mmol/L (3.5-5.1) 01/23/25 06:27
BUN 7 mg/dl (9-20) L 01/23/25 06:27
Creatinine 0.8 mg/dL (0.7-1.3) 01/23/25 06:27
Glucose 82 mg/dl (70-99) 01/23/25 06:27
Vital Signs and I&O:
Vital Signs
Temp Pulse Resp BP Pulse Ox
36.5 C 54 20 104/50 97
01/23/25 11:08 01/23/25 10:00 01/20/25 18:00 01/23/25 10:00 01/22/25 22:58
Vital Signs
Temp Pulse Resp BP Pulse Ox
36.5 C 54 20 104/50 97
01/23/25 11:08 01/23/25 10:00 01/20/25 18:00 01/23/25 10:00 01/22/25 22:58
Intake & Output
01/21/25 01/22/25 01/23/25 01/24/25
07:59 07:59 07:59 07:59
Intake Total 103 / 103 960 / 960
Output Total 1500 / 1500 925 / 925
Balance -1397 / -1397 35 / 35
Physical Exam
Physical Exam
See above
--- NOTE | 2025-01-23 14:19 | CM ---
F/U: Tumor found, patient came in with dysnea/ GI bleed (?), still monitored and care being decided. PLAN: Anticipate Home No Needs.
[2025-01-23] MEDS: FERRLECIT 110 MG IV (14:26)
--- NOTE | 2025-01-23 16:03 | PTCARENOTE ---
Patient ordered MRI. Per dept, they will take him either later tonight or tomorrow. TT sent to Dr Biggs and Dora Fang, ZAIRA with colorectal, to make them aware.
--- NOTE | 2025-01-23 17:54 | PTCARENOTE ---
Patient had MRI completed; Dr Biggs and Dora Fang made aware via TT. Patient Ox3, ambulating in room without difficulty. H&H 8.3/27.7; no outward signs of bleeding noted. See worklist for full assessment and vital signs.
--- NOTE | 2025-01-23 22:30 | PTCARENOTE ---
[facility]. Pt aaox3, ambulated to bed w/o issue. vss on room air. Pt denies pain, enterostomal nurse applied per order, showing NSR/SB w/ prolonged QT. Pt oriented to room, call ball within reach, bed locked and in
lowest position. Plan of care reviewed with pt, all questions answered. Care ongoing.
--- NOTE | 2025-01-23 23:06 | PTCARENOTE ---
Verbal report provided to ZACHERY Sen. Pt aaox3. Sinus ariana on the monitor, hr 50-60s. SpO2 96% on RA. VS and assessment as documented. [facility].
[2025-01-24 03:05] VITALS: BP 119/64
--- NOTE | 2025-01-24 07:47 | W.PN.HOSP.TC ---
Today's Communication/Plan
-
Cleared by colorectal surgery for discharge today
Assessment / Plan
Assessment / Plan
#Chronic microcytic anemia mixed with acute blood loss anemia due to rectal mass
S/p PRBC�4u. Eliquis discontinued.
Appreciate GI input, s/p C-scope demonstrating rectal mass 01/20/25 w/ Dr. Chloe Henry
Seen by heme/onc, s/p IV iron
Medically stable for discharge on ferrous sulfate, follow-up with PCP in 1 week
#Rectal cancer
Confirmed on CT and Direct visualization
S/p C-scope demonstrating rectal mass 01/20/25 w/ Dr. Henry -pathology confirms invasive adenocarcinoma
S/p Flex sig 01/22/25 w/ Dr. Biggs
Pelvis/rectal MRI completed for staging
F/u CEA, PSA elevated at 7.15
Follow-up with oncology and colorectal surgery in the office
#Paroxysmal atrial fibrillation
Seen by cardiology, hold Eliquis
Toprol XL changed to amiodarone by cardiology
#CAD DILAN
#Known history of V-fib arrest
S/p PCI
DVT prophylaxis�SCD secondary to rectal bleeding
Full code
Physical Exam
General: No acute distress
HEENT: Normocephalic, Atraumatic, EOMI, MMM
Respiratory: Clear to Auscultation bilaterally
Cardiac: Normal S1/S2, Regular Rate and Rhythm
GI: Soft, Nontender, Nondistended, Normal Bowel Sounds
Extremities: No Clubbing, Cyanosis, or Edema
Neuro: Nonfocal/Grossly Intact
Psych: Calm, Cooperative
Anticipated Discharge: Today
Subjective/Interval History
-
Date of Service: January 24, 2025
Patient continues to have mild rectal bleeding from his rectal mass. Denies lightheadedness, denies dizziness. No chest pain, no shortness of breath. No fever, no vomiting. He is requesting discharge today.
Objective Data
-
Labs:
Laboratory Results
01/24/25
06:56
WBC Pending
Hgb Pending
Hct Pending
Plt Count Pending
Sodium Pending
Potassium Pending
Chloride Pending
Carbon Dioxide Pending
BUN Pending
Creatinine Pending
Glucose Pending
Calcium Pending
Vital Signs:
Vital Signs
Temp Pulse Resp BP Pulse Ox
98.4 F 57 16 119/64 92
01/24/25 03:05 01/24/25 03:05 01/24/25 03:05 01/24/25 03:05 01/24/25 03:05
I&O
01/23/25 01/24/25 01/25/25
06:59 06:59 06:59
Intake Total 960 / 960 830 / 830
Output Total 625 / 625 300 / 300
Balance 335 / 335 530 / 530
[2025-01-24 07:59] LABS: Blood Urea Nitrogen 7 mg/dl (9-20); Calcium 8.7 mg/dl (8.4-10.2); Carbon Dioxide 29 mmol/L (22-30); Chloride 106 mmol/L (98-107); Estimated Creatinine Clearance 102 ml/min; Glucose 82 mg/dl (70-99); Potassium 4.0 mmol/L (3.5-5.1); Sodium 136 mmol/L (135-145); eGFR > 60.00
[2025-01-24 08:00] VITALS: BP 119/70
[2025-01-24 08:20] LABS: Hematocrit 27.4 % (39.0-52.0); Hemoglobin 8.0 g/dL (13.0-18.0); Mean Corp Hgb Conc. 29.2 g/dL (33.0-37.0); Mean Corpuscular Volume 67.5 fL (80.0-94.0); Platelet Count 305 10^3/uL (130-400); Red Cell Dist. Width 29.1 % (11.5-14.5)
[2025-01-24] MEDS: PROTONIX 40 MG PO (08:25)
[2025-01-24] MEDS: PACERONE 200 MG PO (08:25)
--- NOTE | 2025-01-24 09:10 | W.PN.CRS1 ---
Today's Communication / Plan
-
Await MRI of pelvis read for further plans
Assessment/Plan
-
64 yo male recently started on AC for PAF presenting with cp/sob/ogden with bloody stools and anemia with initial hemoglobin of 4.9 now s/p 4 units pRBCs. Hemoglobin relatively stable but drifting down. AC was held and he was with EGD and colonoscopy
after Eliquis washout yesterday. He was noted to have an ulcerating malignant appearing mass about 20-25cm proximal to the anus with a large polyp close by. The mass was noted to be oozing as well as partially obstructing. He notes some blood in his
stool today. CT chest without evidence of malignancy. CT abd pelvis with mass present, which is likely rectal without evidence of mets. Afebrile. Vitals stable.
01/20/2025- CT C/A/P: negative for metastasis
01/22/2025- Rectal mass 7.5 cm from the anal verge. Likely malignant partially obstructing tumor in the rectum.
Plan:
- CEA pending
- MRI completed, awaiting read
-Appreciate oncology and cardiology
-Continue low residue diet
-Continue with AC on hold
-Path from colonoscopy on 01/20 pending
-Plans to follow post MRI
Subjective Data
Subjective Data
Date of Service: January 24, 2025
Patient states he is feeling well today. He has no complaints. He is asking to go home today. Denies nausea or vomiting. Tolerating diet.
Objective Data
-
Vital Signs
Temp Pulse Resp BP Pulse Ox
98.4 F 60 17 119/70 97
01/24/25 08:00 01/24/25 08:25 01/24/25 08:00 01/24/25 08:25 01/24/25 08:00
Intake & Output
01/23/25 01/24/25 01/25/25
06:59 06:59 06:59
Intake Total 960 / 960 830 / 830
Output Total 625 / 625 300 / 300
Balance 335 / 335 530 / 530
Intake:
Oral fluids 960 / 960 720 / 720
IV fluids (Total) 0 / 0
IV piggybacks 110 / 110
Output:
Urine, Voided 625 / 625 300 / 300
Other:
Number of approximated MODERATE 1 1
amounts of urine
Lab Results
01/24/25 06:56
01/24/25 06:56
Physical Exam
-
General: No Acute Distress and AOx3
Abdomen: Soft, Non Distended and Non Tender
Skin: Warm and Dry
--- NOTE | 2025-01-24 09:25 | VATNOTE ---
Patient with previous IV site to left AC area. Patient reports area remains tender; warm to touch with palpable cord ~2cm in length. Recommend warm compresses to area. Primary RN updated.
[2025-01-24 11:05] VITALS: BP 122/76
--- NOTE | 2025-01-24 11:11 | CM ---
Addendum entered by Neva Walker 01/24/25 11:59:
discharge today
IMM n/a
Original Note:
patient seen at bedside
MRI completed.
PLAN: Home, no needs
patient drove to hospital
--- NOTE | 2025-01-24 11:19 | W.PN.UPDATE ---
Update Note
Progress Note Update
MRI results discussed with patient on the phone with Dr. Biggs. Spencer for d/c from our perspective. Follow up in the office with oncology and Dr. Biggs.
--- NOTE | 2025-01-24 11:22 | W.DCSUMMARY ---
Discharge Summary
Discharge Data
Date of Admission: 01/18/25
Date of Discharge: 01/24/25
-
Pending Results: No
Hospital Course
Discharge diagnosis:
Rectal adenocarcinoma
Acute blood loss anemia secondary to rectal cancer exacerbated by Eliquis
Chronic microcytic anemia
Paroxysmal atrial fibrillation
Coronary artery disease
Consults: GI, colorectal surgery, cardiology, oncology
CT chest/abd/pelvis:
1. Rectal mass suspicious for neoplasm.
2. No findings highly suspicious for metastatic disease in the chest, abdomen or pelvis.
3. Small left and moderate right pleural effusions with adjacent bilateral lower lobe ground glass densities suspicious for pneumonia.
4. Scattered mild subpleural patchy consolidation and intralobular thickening within the bilateral upper lobes, favored infectious/inflammatory. Recommend attention on follow-up exams.
5. Slightly prominent mediastinal and right hilar lymph nodes, favored reactive, less likely metastatic.
6. Prostate median lobe hypertrophy bulging into the bladder base, less likely bladder neoplasm. Probable chronic outlet obstruction changes, less likely cystitis.
01/20/25 C-scope
- The examined portion of the ileum was normal.
- One 20 mm polyp in the rectum.
- Internal hemorrhoids.
- Diverticulosis in the descending colon and in the sigmoid colon.
- The examination was otherwise normal.
- Likely malignant partially obstructing tumor in the from 20 to 25
cm proximal to the anus. Biopsied. Tattooed distal and proximal to
site.
Hospital course:
64-year-old male with a past medical history of CAD, STEMI with V-fib arrest in 2021, current workup for prostate cancer with elevated PSA, recent onset of A-fib with cardioversion 01/09/25 who presented with chest pain, shortness of breath, and
rectal bleeding. Patient was found to have a rectal mass, as well as a hemoglobin of 4.9. He was transfused a total of 4 units of packed red blood cells, and received IV iron. His hemoglobin improved, and was stable at 8.0 on the day of discharge.
Patient was seen in conjunction with cardiology. His Eliquis was discontinued. Cardiology changed his Toprol XL to amiodarone. He will be discharged on amiodarone 200 mg twice a day.
Patient was seen in conjunction with GI. He underwent endoscopy and colonoscopy on 01/20/2025, showing a rectal mass concerning for cancer. Pathology does confirm rectal adenocarcinoma. Patient was seen in conjunction with colorectal surgery, and
underwent flexible sigmoidoscopy on 01/22/2025. He also had a pelvic/rectal MRI. He was seen in conjunction with hematology/oncology. He requested discharge. He needs to follow-up with hematology/oncology as well as colorectal surgery in the
office for definitive management of his rectal cancer. He will be discharged on oral iron. He needs to follow-up with his PCP in 1 week as well.
Disposition: Home self-care
Discharge planning: Required 37 minutes
Discharge Plan
-
Patient Disposition: Home (Routine Discharge)
Discharge Diagnosis/Procedures: Acute blood loss anemia, rectal cancer, paroxysmal atrial fibrillation
Condition: Fair
Diet: Regular
Activity: As tolerated
Driving Restrictions: As prior to admission
Activity Restrictions/Additional Instructions:
Please follow-up with oncology and colorectal surgery in the office.
Also follow-up with your primary care provider in 1 week as well.
Referrals:
Spencer Biggs MD [Active, ColoRectal] - in two to three weeks
Kirby Sylvester DO [Family Provider, Family Practice] - in one week
Rhonda Hazel MD [Active, Hematology / Oncology] - in one to two weeks
Prescriptions:
New
amiodarone [Pacerone] 200 mg Tablet
200 mg PO BID Qty: 60 0RF
ferrous sulfate 325 mg (65 mg iron) tablet
325 mg PO Q OTHER DAY Qty: 30 0RF
Discontinued
Eliquis 5 mg Tablet
5 mg PO BID
metoprolol succinate [Toprol XL] 25 MG tablet extended release 24 hr
25 mg PO DAILY Qty: 90 3RF
Rx Instructions:
decreased to one daily on 01/16/25
Discharge Orders:
Discharge Patient (As Directed); Ordered 01/24/25
Ordered By: Ahmet Henry
Discharge Date and Time
Discharge Date/Time: 01/24/25 13:19
Print Language: [place]
[2025-01-24 19:40] LABS: CEA 7.35 ng/ml
== END 2025-01-24 13:19 | disposition home or self-care (01) | DRG 378 ==
LOC: 2 SOUTH 21:08
PROVIDERS: Hospitalist; Internal Medicine Gastroenterology; Nurse Practitioner Adult Health; Nurse Practitioner Family; Registered Nurse; ADMITTING PHYSICIAN Hospitalist; ATTENDING PHYSICIAN Family Medicine; CONSULT PHYSICIAN Internal Medicine Gastroenterology; CONSULT PHYSICIAN Internal Medicine Hematology & Oncology; CONSULT PHYSICIAN Surgery; EMERGENCY PHYSICIAN Emergency Medicine; FAMILY PHYSICIAN Family Medicine; OTHER PHYSICIAN Internal Medicine Cardiovascular Disease; REFERRING PHYSICIAN Internal Medicine Cardiovascular Disease
PROC: 30233N1 Transfusion of Nonautologous Red Blood Cells into Peripheral Vein, Percutaneous Approach (ICD-10-PCS; 2025-01-18)
PROC: 0DJ08ZZ Inspection of Upper Intestinal Tract, Via Natural or Artificial Opening Endoscopic (ICD-10-PCS; 2025-01-20)
PROC: 0DBQ8ZX Excision of Anus, Via Natural or Artificial Opening Endoscopic, Diagnostic (ICD-10-PCS; 2025-01-20)
PROC: 0DJD8ZZ Inspection of Lower Intestinal Tract, Via Natural or Artificial Opening Endoscopic (ICD-10-PCS; 2025-01-22)
DX: K92.2 Gastrointestinal hemorrhage, unspecified (principal); C20 Malignant neoplasm of rectum; D62 Acute posthemorrhagic anemia; K56.690 Other partial intestinal obstruction; E87.1 Hypo-osmolality and hyponatremia; D68.32 Hemorrhagic disorder due to extrinsic circulating anticoagulants; I48.0 Paroxysmal atrial fibrillation; D12.8 Benign neoplasm of rectum; D63.0 Anemia in neoplastic disease; K64.8 Other hemorrhoids; D50.9 Iron deficiency anemia, unspecified; I10 Essential (primary) hypertension; K44.9 Diaphragmatic hernia without obstruction or gangrene; K31.89 Other diseases of stomach and duodenum; I25.10 Atherosclerotic heart disease of native coronary artery without angina pectoris; R97.20 Elevated prostate specific antigen [PSA]; N40.0 Benign prostatic hyperplasia without lower urinary tract symptoms; E78.5 Hyperlipidemia, unspecified; I25.2 Old myocardial infarction; Z79.899 Other long term (current) drug therapy; Z79.01 Long term (current) use of anticoagulants; Z87.891 Personal history of nicotine dependence
CPT/HCPCS: 71260; 72197; 74177; 80048; 80053; 82378; 82607; 82728; 82746; 83540; 83550; 84153; 84484; 85014; 85018; 85025; 85027; 85610; 86850; 86900; 86901; 86920; 88305; 88342; 93005; A9575; J0282; J2916; P9016; Q9967

== ENCOUNTER 2025-01-27 19:21 | Inpatient (IN) | payer BC, SELFPAY ==
[2025-01-27 13:10] VITALS: BP 131/69
[2025-01-27 13:41] LABS: Hematocrit 34.0 % (39.0-52.0); Hemoglobin 9.8 g/dL (13.0-18.0); Mean Corp Hgb Conc. 28.8 g/dL (33.0-37.0); Mean Corpuscular Volume 69.7 fL (80.0-94.0); Nucleated Red Blood Cells % 0 % (-); Platelet Count 394 10^3/uL (130-400); Red Cell Dist. Width 31.0 % (11.5-14.5)
[2025-01-27 13:43] LABS: ALT (SGPT) 18 U/L (0-50); AST (SGOT) 22 U/L (17-59); Albumin 4.1 g/dl (3.5-5.0); Alkaline Phosphatase 115 U/L (38-126); Blood Urea Nitrogen 12 mg/dl (9-20); Calcium 8.8 mg/dl (8.4-10.2); Carbon Dioxide 28 mmol/L (22-30); Chloride 98 mmol/L (98-107); Glucose 94 mg/dl (70-99); Potassium 4.2 mmol/L (3.5-5.1); Sodium 132 mmol/L (135-145); Total Protein 6.8 g/dl (6.3-8.2); eGFR > 60.00
--- NOTE | 2025-01-27 15:19 | ED.GENMED ---
Addendum entered and electronically signed by Linh Driscoll NP 01/27/25 16:24:
Documentation is incorrect. accidentally added info from another patient. New chart completed.
Original Note:
History of Present Illness
General
Chief Complaint: Rectal Bleeding
Source: patient
Exam Limitations: none
Time Seen by Provider: 01/27/25 15:06
Nursing documentation reviewed up to this point in time: agreed with
History of Present Illness
History of Present Illness:
Patient to the emergency department with complaint of lower abdominal pain, cramping, rectal bleeding. He states his symptoms started yesterday. He states he has not had a normal bowel movement since . States he is passing maroon
jellylike substance. He is concerned that he has a blockage. He reports 2 episodes this a.m. he was recently discharged (01/24) after admission for anemia. He was diagnosed with new finding of rectal CA. He states he is post to meet with oncology
on to discuss treatment options. During that admission his admitting hemoglobin. Was 4.9. He was transfused with PRBCs and iron and hemoglobin stabilized. He reports feeling well until last p.m. when the abdominal pain started. He
denies any fever or chills. He denies any nausea or vomiting. Brought self to the emergency department for evaluation
Past History
Past History
ED Past Medical History: Arrthythmia (A-fib), CAD, HTN, Hypercholesterolemia, [place] and Other (Tremors)
ED Past Surgical History: Cardiac (stent)
Social History
Tobacco: Non-smoker
Alcohol: None
Drug: None
Personal:
Living: alone
Employment: Employed
Family History
Family History: Negative Early CAD
Review of Systems
Review of Systems
Allergies reviewed?: Yes
All Other Systems: ROS reviewed and negative except as documented in HPI and ROS
Constitutional: Reports no symptoms
EENT: Reports no symptoms
Respiratory: Reports no symptoms
Cardiac: Reports no symptoms
ABD/GI: Reports abdominal pain (Lower abdominal pain, passing maroon jellylike substance)
: Reports no symptoms
Musculoskeletal: Reports no symptoms
Skin: Reports no symptoms
Neurological: Reports no symptoms
Psychiatric: Reports no symptoms
Phy Exam
General Physical Exam
General Presentation: well appearing and no apparent distress
General age: appears stated age
General Skin: warm and dry
General Habitus: normal
General Mental: alert
Musculoskeletal Exam
Musculoskeletal Exam: full ROM, neuro vasc intact and other (Pain and mild swelling to right lateral hand)
Skin Exam
Skin Exam: normal color, warm/dry and other (Mild swelling to right lateral hand)
Psychiatric Exam
Psychiatric Exam: normal mood/affect
Course
Orders/Labs/Results
Orders:
Orders
01/27/25 13:16
Complete Blood Count/With Diff Urgent
Comprehensive Metabolic Panel Urgent
01/27/25 15:15
Add On- LAB Urgent
Tests Added?: lipase
01/27/25 15:17
CT Abd/pelvis W Iv Cont Urgent
Comment:
Reason For Exam: lower abd pain, bloody stool
01/27/25 15:49
Urinalysis Reflex To Culture Urgent
Date Specimen was Collected: 01/27/25
Time Specimen was Collected: 15:22
Abnormal Lab Results
01/27/25
13:16
WBC 12.3 H 10^3/uL
(4.8-10.8)
Hgb 9.8 L D g/dL
(13.0-18.0)
Hct 34.0 L %
(39.0-52.0)
MCV 69.7 L fL
(80.0-94.0)
MCH 20.1 L pg
(27.0-31.0)
MCHC 28.8 L g/dL
(33.0-37.0)
RDW 31.0 H %
(11.5-14.5)
Abs Immat Gran (auto) 0.1 H 10^3/uL
(0-0.05)
Absolute Neuts (auto) 10.4 H 10^3/uL
(1.4-6.5)
Absolute Lymphs (auto) 0.7 L 10^3/uL
(1.2-3.4)
Absolute Monos (auto) 0.8 H 10^3/uL
(0.1-0.6)
Neutrophils % 85.1 H %
(42.2-75.2)
Lymphocytes % 5.9 L %
(20.5-51.1)
Sodium 132 L mmol/L
(135-145)
01/27/25 13:16
01/27/25 13:16
Vital Signs
Initial and Last Documented VS:
Initial Vital Signs
Temp Pulse Resp BP Pulse Ox
97.6 F 70 20 131/69 99
01/27/25 13:10 01/27/25 13:10 01/27/25 13:10 01/27/25 13:10 01/27/25 13:10
Last Documented Vital Signs
Temp Pulse Resp BP Pulse Ox
97.6 F 64 18 133/66 96
01/27/25 13:10 01/27/25 15:34 01/27/25 15:34 01/27/25 15:34 01/27/25 15:34
*Radiology
Radiology exam reviewed: radiology read reviewed
*Pulse Oximetry
SaO2: 99
Oxygen Mode of Delivery: Room air
Patient hypoxic: no
*Critical Care Note
Total Time (30-74mins, 75-104mins- exclusive of procedures): Not Applicable
Update Note
Update Note:
Patient's emergency department for evaluation of right lateral hand. Accidentally punched a wall mat while playing basketball today. He has some mild swelling to the right lateral hand. Overall he feels that his symptoms have improved over the
course the last 2 hours due to icing and ibuprofen. He has full range of motion to his hand. Extremity is neurovascularly intact. X-ray reviewed. Radiology report of no acute fracture. He was placed in an ulnar gutter splint for comfort. He
will continue to ice and take ibuprofen as needed for any discomfort. He was given instructions to follow-up with orthopedics if his symptoms are not improving over the course of the next week.
ED Attending Note
-
Portions of this chart may have been created with voice recognition software.� Occasional wrong word or��sound alike� substitutions may have occurred due to the inherent limitations of voice recognition software.
Discharge Plan
Departure
Patient Disposition: Home (Routine Discharge)
Date of Disposition: 01/27/25
Time of Disposition: 16:02
Patient with high blood pressure during this ER visit?: No
Condition: Good
Covid-19: Not Applicable
Discharge Problem:
Contusion of hand
Instructions: Ibuprofen, Splint care - ED (DC), Contusion, RICE Therapy
Prescriptions:
No Action
amiodarone [Pacerone] 200 mg Tablet
200 mg PO BID Qty: 60 0RF
ferrous sulfate 325 mg (65 mg iron) tablet
325 mg PO Q48H
Referrals:
Kirby Sylvester, DO [Family Provider, Family Practice]
Niki Fischer DO [Active, Orthopedics]
Referral Note: Follow-up if your symptoms do not improve over the course the next week.
Activity Restrictions/Additional Instructions:
Follow-up with orthopedics if your symptoms are not improving over the course of the next week.
Interventions
Interventions:
*Risk Screen - Suicide Last Done: 01/27/25 13:10
*ED COVID-19 Vaccine History Last Done: 01/27/25 13:10
*ED Influenza Vaccine History Last Done: 01/27/25 13:10
OF-Utkvjn-Kindlsybvg Assessment Last Done: 01/27/25 15:34
ED- Cardiac Assessment Last Done: 01/27/25 15:34
ED- Pulmonary Assessment Last Done: 01/27/25 15:34
Discharge Date and Time
Print Language: [place]
[2025-01-27 15:33] VITALS: BMI 21.2
[2025-01-27 15:34] VITALS: BP 133/66
[2025-01-27 16:00] LABS: Urine Character Clear (Clear)
--- NOTE | 2025-01-27 16:14 | ED.GENMED ---
History of Present Illness
<Linh Driscoll NP - Last Filed: 01/27/25 23:35>
General
Chief Complaint: Rectal Bleeding
Source: patient
Exam Limitations: none
Time Seen by Provider: 01/27/25 15:06
Nursing documentation reviewed up to this point in time: agreed with
History of Present Illness
History of Present Illness:
Patient to the emergency department with complaint of lower abdominal pain, cramping, rectal bleeding. He states his symptoms started yesterday. He states he has not had a normal bowel movement since . States he had 2 episodes of passing
maroon jellylike substance this a.m and he is concerned that he has a blockage. He was recently discharged(01/24) after admission for anemia. He was diagnosed with a new finding of rectal CA. He states he is scheduled to meet with oncology on
to discuss treatment options. During that admission his admitting hemoglobin was 4.9. He was transfused with PRBCs and iron and his hemoglobin stabilized. He reports feeling well until last p.m. when abdominal pain started. He denies
any fever or chills. He denies any nausea or vomiting. Brought self to the emergency department for evaluation.
Past History
<Linh Driscoll NP - Last Filed: 01/27/25 23:35>
Past History
ED Past Medical History: Arrthythmia (A-fib), CAD, HTN, Hypercholesterolemia, [place] and Other (Tremors)
ED Past Surgical History: Cardiac (stent)
Social History
Tobacco: Non-smoker
Alcohol: None
Drug: None
Personal:
Living: alone
Employment: Employed
Family History
Family History: Negative Early CAD
Review of Systems
<Linh Driscoll NP - Last Filed: 01/27/25 23:35>
Review of Systems
Allergies reviewed?: Yes
All Other Systems: ROS reviewed and negative except as documented in HPI and ROS
Constitutional: Reports no symptoms
EENT: Reports no symptoms
Respiratory: Reports no symptoms
Cardiac: Reports no symptoms
ABD/GI: Reports abdominal pain (Lower abdominal cramping), constipated and other (2 episodes of passing a large amount of maroon-colored jellylike substance)
: Reports no symptoms
Musculoskeletal: Reports no symptoms
Skin: Reports no symptoms
Neurological: Reports no symptoms
Psychiatric: Reports no symptoms
Phy Exam
<Linh Driscoll FIBER DESIGNER - Last Filed: 01/27/25 23:35>
General Physical Exam
General Presentation: well appearing
General age: appears stated age
General Skin: warm and dry
General Habitus: normal
General Mental: alert
Cardiovascular Exam
Cardiovascular Exam: regular rate/rhythm
Gastrointestinal Exam
Gastrointestinal Exam: normal bowel sounds, soft, no organomegaly and non distended
Palpation: left lower quadrant: Mild tenderness and right lower quadrant: Mild tenderness
Rectal Exam: normal external exam, normal sphincter tone and no stool
Musculoskeletal Exam
Musculoskeletal Exam: full ROM and neuro vasc intact
Skin Exam
Skin Exam: normal color, warm/dry and no rash
Psychiatric Exam
Psychiatric Exam: normal mood/affect
Course
<Linh Driscoll FIBER DESIGNER - Last Filed: 01/27/25 23:35>
Orders/Labs/Results
Orders:
Orders
01/27/25 13:16
Complete Blood Count/With Diff Urgent
Comprehensive Metabolic Panel Urgent
Lipase Urgent
Comment: ADD ON
01/27/25 15:17
CT Abd/pelvis W Iv Cont Urgent
Comment:
Reason For Exam: lower abd pain, bloody stool
01/27/25 15:49
Urinalysis Reflex To Culture Urgent
Date Specimen was Collected: 01/27/25
Time Specimen was Collected: 15:22
01/27/25 18:00
Docusate Sodium [Colace] 100 mg PO NOW STA
Piperacillin/Tazo 3.375 Gram [Zosyn] 3.375 gram in 50 ml IV NOW
Polyethylene Glycol Powder [Miralax] 17 grams PO NOW STA
01/27/25 18:01
ColoRectal Surgery Consult Urgent
Consulting Provider: Enrrique Moreno
Was physician already notified: Yes
01/27/25 19:01
Admit/Transfer Patient As Directed
Co-Sign Provider:
Level of Care: Inpatient admission
Assign to:: Medical/Surgical
Physician / Group: Troy Leija
Diagnosis: Colitis, rectal adenocarcinoma, GI bleed
Reason for Hospitalization: Colitis, rectal adenocarcinoma, GI bleed
Expected length of stay greater than two midnights?: Yes
ELOS- Estimated Length of Stay in days: 3
I certify the patient meets the requirements for IP care: Yes
01/27/25 19:03
PRN Pain Medication Management As Directed
May give lesser potent ordered pain med per pt: Yes
preference::
Protocol:: Medication orders for pain may be administered in a
manner that supports deferring to patient preference
when the pt is:
- Requesting an ordered lesser potent pain medication.
Least to most potent pain medications are defined
as: acetaminophen < NSAID < tramadol < opioids
(morphine, oxycodone, hydromorphone).
- Requesting a lesser dose of the same medication IF
ORDERED.
- Requesting a less intrusive route of administration
if both routes are prescribed by the provider (PO <
IV).
01/27/25 19:04
Code Status As Directed
Resuscitation Status: Full Code
01/27/25 21:38
Acetaminophen [Tylenol] 650 mg PO Q4HPRN PRN
Amiodarone [Pacerone] 200 mg PO BID
Bisacodyl [Dulcolax] 10 mg RECTAL [id number] PRN
Docusate W/Senna [Senokot-S] 1 tablet PO BID
01/27/25 21:38
Activity As Directed
Activity Level: Ambulate
Intake/ Output As Directed
Frequency: Per unit guidelines
Pneumatic Compression Sleeves As Directed
Type: Knee high
Vital Signs As Directed
Frequency: Per unit guidelines
Weight As Directed
Frequency: Once
Comment: on admission
DX Deep Vein Thrombosis Video Routine
01/28/25 00:00
Piperacillin/Tazo 3.375 Gram [Zosyn] 3.375 gram in 50 ml IV Q6H
01/28/25 06:00
Basic Metabolic Panel IN AM
Complete Blood Count/No Diff IN AM
01/28/25 08:00
Ferrous Sulfate [Feosol] 325 mg PO Q48H
Polyethylene Glycol Powder [Miralax] 17 grams PO DAILY
Abnormal Lab Results
01/27/25 01/27/25
13:16 15:49
WBC 12.3 H 10^3/uL
(4.8-10.8)
Hgb 9.8 L D g/dL
(13.0-18.0)
Hct 34.0 L %
(39.0-52.0)
MCV 69.7 L fL
(80.0-94.0)
MCH 20.1 L pg
(27.0-31.0)
MCHC 28.8 L g/dL
(33.0-37.0)
RDW 31.0 H %
(11.5-14.5)
Abs Immat Gran (auto) 0.1 H 10^3/uL
(0-0.05)
Absolute Neuts (auto) 10.4 H 10^3/uL
(1.4-6.5)
Absolute Lymphs (auto) 0.7 L 10^3/uL
(1.2-3.4)
Absolute Monos (auto) 0.8 H 10^3/uL
(0.1-0.6)
Neutrophils % 85.1 H %
(42.2-75.2)
Lymphocytes % 5.9 L %
(20.5-51.1)
Sodium 132 L mmol/L
(135-145)
Urine Ketones 1+ A
(Negative)
01/27/25 13:16
01/27/25 13:16
Vital Signs
Initial and Last Documented VS:
Initial Vital Signs
Temp Pulse Resp BP Pulse Ox
97.6 F 70 20 131/69 99
01/27/25 13:10 01/27/25 13:10 01/27/25 13:10 01/27/25 13:10 01/27/25 13:10
Last Documented Vital Signs
Temp Pulse Resp BP Pulse Ox
101.1 F H 68 20 139/69 97
01/27/25 21:31 01/27/25 21:31 01/27/25 21:31 01/27/25 21:31 01/27/25 22:00
<Spencer Moss MD - Last Filed: 01/27/25 19:18>
Orders/Labs/Results
Orders:
Orders
01/27/25 13:16
Complete Blood Count/With Diff Urgent
Comprehensive Metabolic Panel Urgent
Lipase Urgent
Comment: ADD ON
01/27/25 15:17
CT Abd/pelvis W Iv Cont Urgent
Comment:
Reason For Exam: lower abd pain, bloody stool
01/27/25 15:49
Urinalysis Reflex To Culture Urgent
Date Specimen was Collected: 01/27/25
Time Specimen was Collected: 15:22
01/27/25 18:00
Docusate Sodium [Colace] 100 mg PO NOW STA
Piperacillin/Tazo 3.375 Gram [Zosyn] 3.375 gram in 50 ml IV NOW
Polyethylene Glycol Powder [Miralax] 17 grams PO NOW STA
01/27/25 18:01
ColoRectal Surgery Consult Urgent
Consulting Provider: Enrrique Moreno
Was physician already notified: Yes
01/27/25 19:01
Admit/Transfer Patient As Directed
Co-Sign Provider:
Level of Care: Inpatient admission
Assign to:: Medical/Surgical
Physician / Group: Troy Leija
Diagnosis: Colitis, rectal adenocarcinoma, GI bleed
Reason for Hospitalization: Colitis, rectal adenocarcinoma, GI bleed
Expected length of stay greater than two midnights?: Yes
ELOS- Estimated Length of Stay in days: 3
I certify the patient meets the requirements for IP care: Yes
01/27/25 19:03
PRN Pain Medication Management As Directed
May give lesser potent ordered pain med per pt: Yes
preference::
Protocol:: Medication orders for pain may be administered in a
manner that supports deferring to patient preference
when the pt is:
- Requesting an ordered lesser potent pain medication.
Least to most potent pain medications are defined
as: acetaminophen < NSAID < tramadol < opioids
(morphine, oxycodone, hydromorphone).
- Requesting a lesser dose of the same medication IF
ORDERED.
- Requesting a less intrusive route of administration
if both routes are prescribed by the provider (PO <
IV).
01/27/25 19:04
Code Status As Directed
Resuscitation Status: Full Code
01/27/25 21:38
Acetaminophen [Tylenol] 650 mg PO Q4HPRN PRN
Amiodarone [Pacerone] 200 mg PO BID
Bisacodyl [Dulcolax] 10 mg RECTAL [id number] PRN
Docusate W/Senna [Senokot-S] 1 tablet PO BID
01/27/25 21:38
Activity As Directed
Activity Level: Ambulate
Intake/ Output As Directed
Frequency: Per unit guidelines
Pneumatic Compression Sleeves As Directed
Type: Knee high
Vital Signs As Directed
Frequency: Per unit guidelines
Weight As Directed
Frequency: Once
Comment: on admission
DX Deep Vein Thrombosis Video Routine
01/28/25 00:00
Piperacillin/Tazo 3.375 Gram [Zosyn] 3.375 gram in 50 ml IV Q6H
01/28/25 06:00
Basic Metabolic Panel IN AM
Complete Blood Count/No Diff IN AM
01/28/25 08:00
Ferrous Sulfate [Feosol] 325 mg PO Q48H
Polyethylene Glycol Powder [Miralax] 17 grams PO DAILY
Abnormal Lab Results
01/27/25 01/27/25
13:16 15:49
WBC 12.3 H 10^3/uL
(4.8-10.8)
Hgb 9.8 L D g/dL
(13.0-18.0)
Hct 34.0 L %
(39.0-52.0)
MCV 69.7 L fL
(80.0-94.0)
MCH 20.1 L pg
(27.0-31.0)
MCHC 28.8 L g/dL
(33.0-37.0)
RDW 31.0 H %
(11.5-14.5)
Abs Immat Gran (auto) 0.1 H 10^3/uL
(0-0.05)
Absolute Neuts (auto) 10.4 H 10^3/uL
(1.4-6.5)
Absolute Lymphs (auto) 0.7 L 10^3/uL
(1.2-3.4)
Absolute Monos (auto) 0.8 H 10^3/uL
(0.1-0.6)
Neutrophils % 85.1 H %
(42.2-75.2)
Lymphocytes % 5.9 L %
(20.5-51.1)
Sodium 132 L mmol/L
(135-145)
Urine Ketones 1+ A
(Negative)
01/27/25 13:16
01/27/25 13:16
Vital Signs
Initial and Last Documented VS:
Initial Vital Signs
Temp Pulse Resp BP Pulse Ox
97.6 F 70 20 131/69 99
01/27/25 13:10 01/27/25 13:10 01/27/25 13:10 01/27/25 13:10 01/27/25 13:10
Last Documented Vital Signs
Temp Pulse Resp BP Pulse Ox
101.1 F H 68 20 139/69 97
01/27/25 21:31 01/27/25 21:31 01/27/25 21:31 01/27/25 21:31 01/27/25 22:00
<Linh Driscoll NP - Last Filed: 01/27/25 23:35>
*Radiology
Radiology exam reviewed: radiology read reviewed
*Pulse Oximetry
SaO2: 96
Oxygen Mode of Delivery: Room air
Patient hypoxic: no
*Critical Care Note
Total Time (30-74mins, 75-104mins- exclusive of procedures): Not Applicable
<Linh Driscoll NP - Last Filed: 01/27/25 23:35>
Update Note
Update Note:
Patient to the emergency department with complaint of lower abdominal cramping, 2 episodes of passing a large amount of jellylike substance. He reported his last normal bowel movement was on , has not had a normal bowel movement since. He
was inpatient approximately 1 week ago for anemia diagnosed at that time with rectal CA. On exam today he is awake and alert. Vital signs are stable and he remains afebrile. WBC is 12.3. Hemoglobin is improved at 9.8. CT repeated and reveals an
increase in size of the rectal mass, large amount of fecal material throughout, rectal wall thickening consistent with colitis. Discussed case with Dr. Moss who also evaluated this patient. Dr. Moreno was consulted. Recommends admission, stool
softeners, Zosyn. Will admit to the hospitalist service. Dr. Moreno will see patient in a.m.
ED Attending Note
<Linh Driscoll NP - Last Filed: 01/27/25 23:35>
-
Portions of this chart may have been created with voice recognition software.� Occasional wrong word or��sound alike� substitutions may have occurred due to the inherent limitations of voice recognition software.
<Spencer Moss MD - Last Filed: 01/27/25 19:18>
ED Attending Note
Patient seen and examined by attending physician: Yes
I performed the substantive portion of visit, reviewed & personally made and approve the management plan that is documented in note by myself or AVELINA.: Yes
ED Attending Note:
Patient with a recent diagnosis of colorectal CA. Returns with difficulties with bowel movements. Some nausea. Some vague abdominal discomfort.
On exam patient is nontoxic in no distress. Warm and dry. Perfusing well. No respiratory distress. Regular rate and rhythm. Abdomen is nondistended. Mild diffuse lower abdominal tenderness. No rebound or guarding no mass or hernia. Warm and
dry.
Labs show a progressive rectal mass. Some associated colitis. Hemoglobin improved somewhat. Mild leukocytosis.
Discussed with colorectal surgery. Patient will be admitted for IV antibiotics fluids and further care.
Discharge Plan
Departure
Patient Disposition: Admit
Date of Disposition: 01/27/25
Time of Disposition: 17:55
Presentation/result/management discussed w/ accepting MD/DO: Hospitalist
Patient with high blood pressure during this ER visit?: No
Condition: Good
Covid-19: Not Applicable
Discharge Problem:
Colitis, Rectal mass, Constipation
Interventions
Interventions:
*Risk Screen - Suicide Last Done: 01/27/25 13:10
*ED COVID-19 Vaccine History Last Done: 01/27/25 13:10
*ED Influenza Vaccine History Last Done: 01/27/25 13:10
*Nursing Disposition Last Done: 01/27/25 21:41
EG-Eecdkk-Lztklehluq Assessment Last Done: 01/27/25 15:34
ED- Cardiac Assessment Last Done: 01/27/25 15:34
ED- Pulmonary Assessment Last Done: 01/27/25 15:34
Discharge Date and Time
Discharge Date/Time: 01/27/25 21:43
[2025-01-27 16:36] LABS: Lipase 108 U/L (23-300)
--- NOTE | 2025-01-27 18:16 | HPS.HSE ---
Addendum entered and electronically signed by Troy Leija MD 01/27/25 19:12:
This is an addendum to H&P written by Key King on 01/27/2025. �Patient seen and examined independently with VIDEO GAME DESIGNER.
64-year-old male past medical history of rectal adenocarcinoma, anemia secondary to rectal cancer, chronic microcytic anemia, paroxysmal atrial fibrillation on Eliquis, CAD, history of STEMI/V-fib arrest presenting with lower abdominal pain, maroon
jelly colored stool and rectal pain.
Patient was recently admitted from 01/18 to 01/24 for rectal bleeding secondary to rectal mass and anemia of 4.9. �He was given 4 units of blood. �He received IV iron. �Eliquis was discontinued. �He was seen by GI and colorectal surgery. �He underwent
endoscopy and colonoscopy showing rectal mass concerning for cancer. �He underwent flexible sigmoidoscopy in 01/22 and underwent pelvic/rectal MRI. �He was seen by hematology oncology. �Patient requested discharge and was recommend to follow-up with
the specialists.
Vital signs normal.
Labs show leukocytosis of 12. �Hemoglobin stable 9.8.
CT abdomen pelvis shows rectal mass increased in size. �Rectal wall thickening proximal to the region/seen colitis. �Large amount of fecal matter throughout the colon. �Severe bladder wall thickening.
Patient with colitis secondary to rectal mass with associated constipation. �Zosyn. �MiraLAX and senna. �Colorectal surgery consulted.
Original Note:
Family Physician
-
Family Physician: Kirby Sylvester
Chief Complaint
-
abdominal pain and blood in stool
History of Present Illness
Patient is a 64-year-old male with past medical history significant for rectal adenocarcinoma, paroxysmal atrial fibrillation, CAD, Hx STEMI with v-fib arrest and Hx GI bleed who presented to [facility] ED for evaluation of abdominal pain and blood in
stool. Patient reports that he noticed maroon jelly like substance that passed through the rectum a couple of times that started yesterday. He notes lower abdominal pain and anal pain since yesterday. Patient was recently hospitalized 01/18/2025 -
01/24/2025 for GI bleed, and was diagnosed with rectal adenocarcinoma. He received 4 units of PRBCs for a hgb of 4.9 that stabilized at discharge at 8.0. Eliquis was stopped during this visit 2/2 GI bleed and anemia. Patient is scheduled to follow
up with [facility] in [place] next week and Colorectal Surgeons in 2 weeks to develop POC for cancer. Patient denies any fever, chills cough, shortness of breath, chest pain, nausea, vomiting, diarrhea or urinary symptoms. Last
normal BM yesterday 01/26/2025.
Medical History
Past Medical History
Past Medical History: Reports Other
Additional Past Medical History:
rectal adenocarcinoma
paroxysmal atrial fibrillation
CAD
Hx STEMI with v-fib arrest
Hx GI bleed
Past Surgical History: Reports Other
Additional Past Surgical History:
PCI with overlapping 4.0 x 12 mm and 3.5 x 28 mm Xience stents to mid RCA 05/04/21
Social History
Tobacco: Non-smoker
Alcohol: None
Living: Alone
Employment: Employed
Family History
Family History: Not pertinent
Allergies / Home Medications
Allergies reflects when Allergies were last updated in [employer].
Home Medications with original date entered in [employer]
Allergy/Medication List:
Allergies
Allergy/AdvReac Type Severity Reaction Status Date / Time
No Known Allergies Allergy Verified 01/18/25 17:07
Home Medications
amiodarone 200 mg tablet (Pacerone) 200 mg PO BID #60 tabs 01/24/25
ferrous sulfate 325 mg (65 mg iron) tablet 325 mg PO Q48H 01/27/25
Review of Systems
-
History Source: Patient
Constitutional: Denies Fever or Chills
EENT: Denies Sore Throat
Respiratory: Denies Cough, Hemoptysis or Trouble Breathing
Cardiac: Denies Chest Pain, Diaphoresis, Palpitations or Syncope
Abdomen/GI: Reports Abdominal Pain, Bloody Stools and Other (anal pain ); Denies Nausea, Vomiting or Diarrhea
: Denies Dysuria, Frequency or Urgency
Musculoskeletal: Denies Joint Pain
Skin: Denies Rash
Neurological: Denies Dizzy, Headache, Weakness or Numbness
Physical Exam
Vital Signs
Vital Signs
Temp Pulse Resp BP Pulse Ox
97.6 F 64 18 133/66 96
01/27/25 13:10 01/27/25 15:34 01/27/25 15:34 01/27/25 15:34 01/27/25 16:22
Physical Exam
General: Well Developed, Well Nourished, No Apparent Distress, Comfortable and Conversant
HEENT: NormoCephalic, Moist mucous membranes, PERRLA, Nose Appears Normal and Ears Appear Normal
Respiratory: Clear and Non Labored Respirations; No Wheezes, Rales or Rhonchi
Cardiac: S1/S2 and Regular Rhythm
GI: Soft, Non Distended, Normal Bowel Sounds and Tender (right & left lower quadrant )
Rectal: Other (see ED documentation)
Musculoskeletal: No Clubbing and No Cyanosis
Neuro: Awake and AO x 3
Psych: Calm and Intact Judgment/Insight
Laboratory Results
-
01/27/25 13:16
01/27/25 13:16
Laboratory Results
Total Bilirubin 1.2 mg/dl (0.2-1.3) 01/27/25 13:16
AST 22 U/L (17-59) 01/27/25 13:16
ALT 18 U/L (0-50) 01/27/25 13:16
Alkaline Phosphatase 115 U/L (38-126) 01/27/25 13:16
Lipase 108 U/L (23-300) 01/27/25 13:16
Data Reviewed
-
Lab Data: Labs Reviewed by me (WBC 12.3, hgb 9.8, hct 34.0, neut 85.1, Na 132)
Impression/Plan
-
IMPRESSION/PLAN:
#lower abdominal pain, anal pain and rectal bleeding 2/2 rectal adenocarcinoma vs. GI bleed vs. colitis
maroon jelly like substance that passed through the rectum a couple of times, lower abdominal pain and anal pain since yesterday
WBC 12.3, Neut 85.1, Na 132
Abd/Pel CT: Findings consistent with rectal mass such as malignancy until proven otherwise. Increased from 01/20/2025. See MRI of the pelvis report.
Rectal wall thickening proximal to this region suggesting colitis. New
Too small to characterize hypodense left renal lesions likely benign cysts. Stable
1 mm nonobstructing right renal stone. New.
Tiny bilateral pleural effusions, right larger than left. Much improved.
Tiny pericardial effusion. New
Large amount of fecal matter throughout the colon. Increased
Severe bladder wall thickening. This can be seen with cystitis and bladder outlet obstruction. Progressed
Mild prostate hypertrophy. Stable
- Admit to med/surg
- Consult Colorectal Surgery
- bowel regimen
- IV Zosyn
- supportive care
#rectal adenocarcinoma
Follow up with Heme/Onc and Colorectal out patient as scheduled
#paroxysmal atrial fibrillation
cardiology stopped Eliquis during last hospitalization for GI bleed
- continue amiodarone
#CAD
#Hx STEMI with v-fib arrest
s/p PCI with overlapping 4.0 x 12 mm and 3.5 x 28 mm Xience stents to mid RCA 05/04/21
#anemia
#Hx GI bleed
hgb 9.8, hct 34.0
blood consent obtained and scanned to chart
- continue ferrous sulfate
Code status: full code
DVT prophylaxis: SCDs
[2025-01-27] MEDS: COLACE 100 MG PO (18:43)
[2025-01-27] MEDS: ZOSYN 50 IV ×2 (18:43→23:01)
[2025-01-27] MEDS: MIRALAX 17 GRAMS PO (18:43)
[2025-01-27 21:31] VITALS: BP 139/69; BMI 20.6
[2025-01-27 21:59] VITALS: BMI 20.6
[2025-01-27] MEDS: PACERONE 200 MG PO (22:07)
[2025-01-27] MEDS: SENOKOT-S 1 TABLET PO (22:07)
[2025-01-27] MEDS: TYLENOL 650 MG PO (22:08)
--- NOTE | 2025-01-27 22:22 | PTCARENOTE ---
Patient arrived from the ED via stretcher. Patient ambulated into the room. No c/o light headedness/dizziness. AAOx3, VSS. Patient c/o 07/26 abdominal pain. No hx of falls of the last 6 months. Tylenol given for temperature, see MAR. Patient updated
on plan of care. Call ball is within reach.
[2025-01-27 23:36] VITALS: BP 112/61
[2025-01-28] MEDS: ZOSYN 50 IV ×4 (05:48→23:57)
[2025-01-28] MEDS: TYLENOL 650 MG PO (05:48)
[2025-01-28 07:38] VITALS: BP 106/64
--- NOTE | 2025-01-28 07:48 | W.PN.HOSP.TC ---
Today's Communication/Plan
-
Patient can be discharged this afternoon if he remains afebrile
Assessment / Plan
Assessment / Plan
HPI: 64 yo male h/o BPH, CAD s/p PCI to RCA 2021, recent dx of AF with cardioversion and started on Eliquis last month who subsequently was admitted for acute blood loss anemia secondary rectal bleeding from 01/19-01/24/2025 with diagnostic work up
demonstrating [id number], pMMR mid rectal cancer straddling the peritoneal reflection and noted to be partially obstructing and oozing during scopes. He was discharged to home off anticoagulation to continue oncologic treatment as an outpatient. He
presents this admission with pelvic pain with constipation; now resolved and passing bm's/gas s/p laxatives given in ED. Fever noted last night to 101 as well as mild leukocytosis. Hgb stable and increased from prior presentation. Afebrile today
with stable VS. Flu negative. CT imaging reviewed with increased stool burden distal to partially obstructing rectal mass with possible colitis present.
#Rectal cancer associated colitis
#Lower abdominal pain
Appreciate general surgery input, currently on IV Zosyn
Will discharge on Augmentin to complete a 7-day course
#Constipation
Resolved on laxatives
Will discharge on laxatives
#Fever
COVID/flu negative
Chest x-ray/urine analysis negative
Likely from colitis, treat as above
#Rectal cancer
Confirmed on CT and Direct visualization
S/p C-scope demonstrating rectal mass 01/20/25 w/ Dr. Henry -pathology confirms invasive adenocarcinoma
S/p Flex sig 01/22/25 w/ Dr. Biggs
Follow-up with oncology and colorectal surgery in the office
#Acute blood loss anemia mixed with iron deficiency anemia
Blood loss from rectal bleeding from rectal cancer
Hemoglobin improved at 9.8, continue ferrous sulfate
#Paroxysmal atrial fibrillation
Anticoagulation stopped secondary to rectal bleeding from rectal cancer
Continue amiodarone
#CAD DILAN
#Known history of V-fib arrest
S/p PCI
DVT prophylaxis�SCD secondary to rectal bleeding
Full code
Total time spent to see the patient on the floor, examine the patient, review data and lab results, discuss treatment plan with patient, nursing staff around 38 minutes.
Physical Exam
General: No acute distress
HEENT: Normocephalic, Atraumatic, EOMI, MMM
Respiratory: Clear to Auscultation bilaterally
Cardiac: Normal S1/S2, Regular Rate and Rhythm
GI: Soft, Nontender, Nondistended, Normal Bowel Sounds
Extremities: No Clubbing, Cyanosis, or Edema
Neuro: Nonfocal/Grossly Intact
Psych: Calm, Cooperative
Anticipated Discharge: Today
Subjective/Interval History
-
Date of Service: January 28, 2025
Patient's lower abdominal pain and rectal pain have resolved. He denies chest pain, denies shortness of breath. He was febrile last night at 11 PM. He is requesting discharge today.
Objective Data
-
Labs:
Laboratory Results
01/28/25
06:00
WBC Pending
Hgb Pending
Hct Pending
Plt Count Pending
Sodium Pending
Potassium Pending
Chloride Pending
Carbon Dioxide Pending
BUN Pending
Creatinine Pending
Glucose Pending
Calcium Pending
Vital Signs:
Vital Signs
Temp Pulse Resp BP Pulse Ox
99.3 F 69 20 112/61 96
01/27/25 23:36 01/27/25 23:36 01/27/25 23:36 01/27/25 23:36 01/27/25 23:36
I&O
01/27/25 01/28/25 01/29/25
06:59 06:59 06:59
Intake Total 1300 / 1300
Balance 1300 / 1300
[2025-01-28 08:49] LABS: COVID-19 Antigen Negative (Negative)
[2025-01-28] MEDS: PACERONE 200 MG PO ×2 (09:03→21:46)
[2025-01-28] MEDS: SENOKOT-S 1 TABLET PO ×2 (09:04→21:56)
[2025-01-28] MEDS: MIRALAX 17 GRAMS PO (09:04)
[2025-01-28] MEDS: FEOSOL 325 MG PO (09:04)
[2025-01-28 09:46] LABS: Hematocrit 31.1 % (39.0-52.0); Hemoglobin 9.5 g/dL (13.0-18.0); Mean Corp Hgb Conc. 30.5 g/dL (33.0-37.0); Mean Corpuscular Volume 69.7 fL (80.0-94.0); Platelet Count 354 10^3/uL (130-400); Red Cell Dist. Width 30.9 % (11.5-14.5)
--- NOTE | 2025-01-28 10:14 | CON.CRS ---
Addendum entered and electronically signed by Enrrique Moreno MD 01/29/25 07:03:
I saw and examined the patient independently.
The Data Conversion Developer's note was reviewed and I agree with the note, assessment and plan except where noted below.
Comment: 64-year-old male with medical history below presents with obstipation secondary to his rectal cancer. However on rounds this morning he states that he is passing flatus and bowel movements.
Okay to DC if patient remains afebrile.
Would send him on a course of antibiotics x 7 days for his colitis.
Patient to follow-up with the colorectal team in the coming week.
Patient to maintain on an aggressive bowel regimen at home
Original Note:
Consultation
-
Date/Time Consultation Requested: 01/27/25 1801
Date/Time Consultation Performed: 01/28/25 0900
Requesting Provider: Americo
Performing Provider: Leticia Moreno
Medical History
-
Chief Complaint: pelvic pain
History of Present Illness:
Mr Henry is a 64 yo male h/o BPH, CAD s/p PCI to RCA 2021, recent dx of AF with cardioversion and started on Eliquis last month who subsequently was admitted for acute blood loss anemia secondary rectal bleeding from 01/19-01/24/2025 with diagnostic
work up demonstrating [id number], pMMR mid rectal cancer straddling the peritoneal reflection and noted to be partially obstructing and oozing during scopes. He was initially transfused 4 units of blood and hemoglobin remained stable off AC which was
discontinued as given risk for recurrent bleeding from his rectal mass. He was discharged to home to continue with neoadjuvant treatment prior to consideration for surgery. He presents this admission with lower abdominal pain and constipation with
fever to 101 last night. He was given laxatives on admission and was able to pass several BM's and now feels complete relief. He denies further pain and has not had a fever since 2100 last noc. He denies cough or difficulty voiding.
Past Medical History
Past Medical History: Arrhythmias (AF s/p Cardioversion 01/09/2025), CAD (PCI to RCA 2021), Cancer (rectal (dx 01/2025)) and Other (BPH following closely with his urologist for elevated PSA)
Past Surgical History: Cardiac (CI with overlapping 4.0 x 12 mm and 3.5 x 28 mm Xience stents to mid RCA 05/04/21)
Social History
Tobacco: Non-Smoker
Alcohol: None
Allergies / Home Medications
Allergy/AdvReac Type Severity Reaction Status Date / Time
No Known Allergies Allergy Verified 01/18/25 17:07
�Medication �Instructions �Recorded �Confirmed �Type
amiodarone 200 mg tablet (Pacerone) 200 mg PO BID #60 tabs 01/24/25 01/27/25 Rx
ferrous sulfate 325 mg (65 mg 325 mg PO Q48H 01/27/25 01/27/25 History
iron) tablet
Review of Systems
-
History Source: Patient
All other systems: Negative unless noted
A 10 point review of systems was completed, and was negative except as per HPI.
Physical Exam
Vital Signs
Temp 98.7 F 01/28/25 07:38
Pulse 62 01/28/25 09:03
Resp Rate 16 01/28/25 07:38
Blood pressure 106/54 01/28/25 09:03
SaO2 98 01/28/25 07:38
01/27/25 01/28/25 01/29/25
06:59 06:59 06:59
Actual Weight 72.631 kg
Body Mass Index (BMI) 20.6
Lab Results / Allergies
01/28/25 08:55
WBC 13.8 10^3/uL (4.8-10.8) H 01/28/25 08:55
Hgb 9.5 g/dL (13.0-18.0) L 01/28/25 08:55
Hct 31.1 % (39.0-52.0) L 01/28/25 08:55
Plt Count 354 10^3/uL (130-400) 01/28/25 08:55
Abs Immat Gran (auto) 0.1 10^3/uL (0-0.05) H 01/27/25 13:16
Neutrophils % 85.1 % (42.2-75.2) H 01/27/25 13:16
Allergy/AdvReac Type Severity Reaction Status Date / Time
No Known Allergies Allergy Verified 01/18/25 17:07
Physical Exam
General: Well Developed and Well Nourished
HEENT: Normocephalic and Moist Mucous Membranes
GI: Soft, Non Tender and Non Distended
Skin: Warm and Dry
Neuro: Awake, Alert and AO x 3
Psych: Calm
Data Reviewed
-
CT Scan: Image Personally Visualized and interpreted, Report Reviewed by me, Discussed with Physician and Discussed with Patient
MRI: Report Reviewed by me, Discussed with Physician and Discussed with Patient
Labs: Labs Reviewed by me, Discussed with Physician and Discussed with Patient
Old Records: Reviewed
Assessment / Plan
-
Mr Henry is a 64 yo male h/o BPH, CAD s/p PCI to RCA 2021, recent dx of AF with cardioversion and started on Eliquis last month who subsequently was admitted for acute blood loss anemia secondary rectal bleeding from 01/19-01/24/2025 with diagnostic
work up demonstrating [id number], pMMR mid rectal cancer straddling the peritoneal reflection and noted to be partially obstructing and oozing during scopes. He was discharged to home off anticoagulation to continue oncologic treatment as an
outpatient. He presents this admission with pelvic pain with constipation; now resolved and passing bm's/gas s/p laxatives given in ED. Fever noted last night to 101 as well as mild leukocytosis. Hgb stable and increased from prior presentation.
Afebrile today with stable VS. Flu negative. CT imaging reviewed with increased stool burden distal to partially obstructing rectal mass with possible colitis present.
Plan:
Would continue Zosyn for management of possible colitis, ok to transition to Augmentin on d/c
Continue inpatient bowel regimen and continue with Miralax/colace upon discharge
Continue outpatient follow up with oncology which is planned for next week
Infectious work up/dispo as per hospitalist
No surgery planned this admission
[2025-01-28 10:15] LABS: Blood Urea Nitrogen 11 mg/dl (9-20); Calcium 8.5 mg/dl (8.4-10.2); Carbon Dioxide 23 mmol/L (22-30); Chloride 98 mmol/L (98-107); Estimated Creatinine Clearance 86 ml/min; Glucose 113 mg/dl (70-99); Potassium 4.1 mmol/L (3.5-5.1); Sodium 130 mmol/L (135-145); eGFR > 60.00
--- NOTE | 2025-01-28 14:43 | CM ---
CM reviewed chart and noted dc order
Pt [place] alone [place] with 1 [place]
Notes independence with ADLs, denies use of DMEs
PCP- Kirby Sylvester
Rx- VERNON Long
No dc needs noted
Pt plans to drive self home
Discharge Disposition- home no needs, drives self
[2025-01-28 15:46] VITALS: BP 115/61
[2025-01-28 15:48] VITALS: BP 123/63
[2025-01-28 23:57] VITALS: BP 126/71
[2025-01-29 03:43] VITALS: BP 112/56
[2025-01-29] MEDS: ZOSYN 50 IV ×2 (05:48→11:16)
[2025-01-29 07:30] VITALS: BP 126/66
[2025-01-29] MEDS: MIRALAX PO (08:23)
[2025-01-29] MEDS: SENOKOT-S PO (08:23)
[2025-01-29] MEDS: PACERONE 200 MG PO (08:23)
--- NOTE | 2025-01-29 08:49 | W.PN.HOSP.TC ---
Today's Communication/Plan
-
Discharge in the afternoon if afebrile
Assessment / Plan
Assessment / Plan
HPI: 64 yo male h/o BPH, CAD s/p PCI to RCA 2021, recent dx of AF with cardioversion and started on Eliquis last month who subsequently was admitted for acute blood loss anemia secondary rectal bleeding from 01/19-01/24/2025 with diagnostic work up
demonstrating [id number], pMMR mid rectal cancer straddling the peritoneal reflection and noted to be partially obstructing and oozing during scopes. He was discharged to home off anticoagulation to continue oncologic treatment as an outpatient. He
presents this admission with pelvic pain with constipation; now resolved and passing bm's/gas s/p laxatives given in ED. Fever noted last night to 101 as well as mild leukocytosis. Hgb stable and increased from prior presentation. Afebrile today
with stable VS. Flu negative. CT imaging reviewed with increased stool burden distal to partially obstructing rectal mass with possible colitis present.
#Rectal cancer associated colitis
#Lower abdominal pain
Appreciate general surgery input, currently on IV Zosyn
If afebrile in the afternoon, can be discharged on Augmentin to complete a 7-day course
#Constipation
Resolved on laxatives
Will discharge on laxatives
#Fever
COVID/flu negative
Chest x-ray/urine analysis negative
Likely from colitis, treat as above
#Rectal cancer
Confirmed on CT and Direct visualization
S/p C-scope demonstrating rectal mass 01/20/25 w/ Dr. Henry -pathology confirms invasive adenocarcinoma
S/p Flex sig 01/22/25 w/ Dr. Biggs
Follow-up with oncology and colorectal surgery in the office
#Acute blood loss anemia mixed with iron deficiency anemia
Blood loss from rectal bleeding from rectal cancer
Hemoglobin improved at 9.8, continue ferrous sulfate
#Paroxysmal atrial fibrillation
Anticoagulation stopped secondary to rectal bleeding from rectal cancer
Continue amiodarone
#CAD DILAN
#Known history of V-fib arrest
S/p PCI
DVT prophylaxis�SCD secondary to rectal bleeding
Full code
Total time spent to see the patient on the floor, examine the patient, review data and lab results, discuss treatment plan with patient, nursing staff around 35 minutes.
Physical Exam
General: No acute distress
HEENT: Normocephalic, Atraumatic, EOMI, MMM
Respiratory: Clear to Auscultation bilaterally
Cardiac: Normal S1/S2, Regular Rate and Rhythm
GI: Soft, Nontender, Nondistended, Normal Bowel Sounds
Extremities: No Clubbing, Cyanosis, or Edema
Neuro: Nonfocal/Grossly Intact
Psych: Calm, Cooperative
Anticipated Discharge: Today
Subjective/Interval History
-
Date of Service: January 29, 2025
Patient had fever 100.6 yesterday at 3:48 PM. No recurrence of abdominal pain and rectal pain. He is having bowel movements. Denies chest pain, denies shortness of breath. No fever, no vomiting.
Objective Data
-
Vital Signs:
Vital Signs
Temp Pulse Resp BP Pulse Ox
97.4 F 86 16 126/68 95
01/29/25 07:30 01/29/25 08:23 01/29/25 07:30 01/29/25 08:23 01/29/25 08:45
I&O
01/28/25 01/29/25 01/30/25
06:59 06:59 06:59
Intake Total 1300 / 1300 840 / 840
Balance 1300 / 1300 840 / 840
--- NOTE | 2025-01-29 10:06 | W.PN.GS2 ---
Today's Communication / Plan
-
Check CBC
Follow fever trend
Assessment / Plan
-
Mr Henry is a 64 yo male h/o BPH, CAD s/p PCI to RCA 2021, recent dx of AF with cardioversion and started on Eliquis last month who subsequently was admitted for acute blood loss anemia secondary rectal bleeding from 01/19-01/24/2025 with diagnostic
work up demonstrating [id number], pMMR mid rectal cancer. He presents this admission with fevers in addition to pelvic pain with constipation.
Pain resolved and passing bm's/gas s/p laxatives given in ED
Fever to 100.6 yesterday afternoon, none since. VSS
Venous duplex without DVT
?Colitis on CT imaging. Other infectious work up thus far negative.
WBC was trending upwards yesterday, will recheck labs this am
Plan:
Okay to DC if patient remains afebrile.
Will check AM labs
Would send him on a course of antibiotics x 7 days for coverage of colitis.
OP follow up for continued oncologic follow up has been arranged late this week
Patient to maintain on an aggressive bowel regimen at home
Subjective Data
-
Date of Service: January 29, 2025
Pt seen and examined at bedside with Dr. Moreno. Denies n/v. Tolerating diet. Passing quite a bit of stool. Denies pain.
Objective Data
-
Intake and Output
01/28/25 01/29/25 01/30/25
06:59 06:59 06:59
Intake Total 1300 / 1300 840 / 840
Balance 1300 / 1300 840 / 840
Intake:
Oral fluids 1200 / 1200 840 / 840
IV piggybacks 100 / 100
Other:
Number of approximated MODERATE 3 4
amounts of urine
Vital Signs
Temp Pulse Resp BP Pulse Ox
97.4 F 86 16 126/68 95
01/29/25 07:30 01/29/25 08:23 01/29/25 07:30 01/29/25 08:23 01/29/25 08:45
Lab Results
01/28/25 08:55
01/28/25 08:55
Calcium 8.5 mg/dl (8.4-10.2) 01/28/25 08:55
Total Bilirubin 1.2 mg/dl (0.2-1.3) 01/27/25 13:16
AST 22 U/L (17-59) 01/27/25 13:16
ALT 18 U/L (0-50) 01/27/25 13:16
Alkaline Phosphatase 115 U/L (38-126) 01/27/25 13:16
Total Protein 6.8 g/dl (6.3-8.2) 01/27/25 13:16
Albumin 4.1 g/dl (3.5-5.0) 01/27/25 13:16
Physical Exam
-
NAD
ABD soft, nt, nd
[2025-01-29 10:46] LABS: Hematocrit 30.8 % (39.0-52.0); Hemoglobin 9.0 g/dL (13.0-18.0); Mean Corp Hgb Conc. 29.2 g/dL (33.0-37.0); Mean Corpuscular Volume 70.3 fL (80.0-94.0); Platelet Count 358 10^3/uL (130-400); Red Cell Dist. Width 30.5 % (11.5-14.5)
[2025-01-29 11:07] LABS: Blood Urea Nitrogen 13 mg/dl (9-20); Calcium 8.8 mg/dl (8.4-10.2); Carbon Dioxide 27 mmol/L (22-30); Chloride 102 mmol/L (98-107); Estimated Creatinine Clearance 97 ml/min; Glucose 73 mg/dl (70-99); Potassium 4.1 mmol/L (3.5-5.1); Sodium 134 mmol/L (135-145); eGFR > 60.00
[2025-01-29 11:14] VITALS: BP 112/65
[2025-01-29 14:41] VITALS: BMI 20.6
--- NOTE | 2025-01-29 16:36 | W.DCSUMMARY ---
Discharge Summary
Discharge Data
Date of Admission: 01/27/25
Date of Discharge: 01/29/25
-
Pending Results: No
Hospital Course
Discharge diagnoses:
Rectal cancer associated colitis
Constipation
Lower abdominal pain
Fever
Rectal cancer
Acute blood loss anemia mixed with iron deficiency anemia
Paroxysmal atrial fibrillation
Consults: Colorectal surgery
CT abdomen and pelvis:
Findings consistent with rectal mass such as malignancy until proven otherwise. Increased from 01/20/2025. See MRI of the pelvis report.
Rectal wall thickening proximal to this region suggesting colitis. New
Too small to characterize hypodense left renal lesions likely benign cysts. Stable
1 mm nonobstructing right renal stone. New.
Tiny bilateral pleural effusions, right larger than left. Much improved.
Tiny pericardial effusion. New
Large amount of fecal matter throughout the colon. Increased
Severe bladder wall thickening. This can be seen with cystitis and bladder outlet obstruction. Progressed
Mild prostate hypertrophy. Stable
Hospital course:
64-year-old male with a past medical history of atrial fibrillation not on anticoagulation and recently diagnosed rectal cancer who was admitted for rectal cancer associated colitis, constipation, and lower abdominal pain. Patient was seen in
conjunction with colorectal surgery. He was treated with IV Zosyn. He had fevers. He was negative for COVID, negative for influenza. Urine analysis/chest x-ray were also negative. Lower extremity Dopplers were negative for DVT. His fever is
likely from his colitis.
Patient has lower abdominal pain from constipation. This resolved with laxatives. After several days, his fever resolved. He is medically stable and cleared by colorectal surgery for discharge on Augmentin to complete a 7-day course, MiraLAX, and
Colace. He needs to follow-up with his PCP in 1 week, oncology in the office as soon as possible, and colorectal surgery in the office in 3-4 weeks.
Disposition: Home self-care
Discharge planning: Required 33-minutes
Discharge Plan
-
Patient Disposition: Home (Routine Discharge)
Discharge Diagnosis/Procedures: Rectal cancer associated colitis, constipation, rectal cancer with rectal bleeding
Condition: Fair
Diet: As tolerated and Low Fiber
Activity: As tolerated
Driving Restrictions: As prior to admission
Referrals:
Spencer Biggs MD [Active, ColoRectal] - in one to two weeks
Kirby Sylvester DO [Family Provider, Family Practice] - in one week
Rhonda Hazel MD [Active, Hematology / Oncology] - in one week
Additional Discharge Medication Instructions: Keep your stools soft to loose. Avoid constipation.
Prescriptions:
New
polyethylene glycol 3350 17 gram/dose powder
17 g PO DAILY Qty: 510 0RF
docusate sodium [Colace] 100 mg capsule
100 mg PO BID Qty: 60 0RF
amoxicillin-pot clavulanate 875-125 mg tablet
1 tab PO BID 7 Days Qty: 14 0RF
Continued
amiodarone [Pacerone] 200 mg Tablet
200 mg PO BID Qty: 60 0RF
ferrous sulfate 325 mg (65 mg iron) tablet
325 mg PO Q48H
Discharge Orders:
Discharge Patient (As Directed); Ordered 01/29/25
Ordered By: Ahmet Henry
Discharge Date and Time
Discharge Date/Time: 01/29/25 16:35
Print Language: ARABIC
== END 2025-01-29 16:35 | disposition home or self-care (01) | DRG 375 ==
LOC: 4 EAST ACU 19:21
PROVIDERS: Nurse Practitioner; Nurse Practitioner Family; Registered Nurse; ADMITTING PHYSICIAN Hospitalist; ATTENDING PHYSICIAN Family Medicine; CONSULT PHYSICIAN Surgery; EMERGENCY PHYSICIAN Emergency Medicine; FAMILY PHYSICIAN Family Medicine
DX: C19 Malignant neoplasm of rectosigmoid junction (principal); D62 Acute posthemorrhagic anemia; K62.5 Hemorrhage of anus and rectum; D63.0 Anemia in neoplastic disease; K52.9 Noninfective gastroenteritis and colitis, unspecified; K59.00 Constipation, unspecified; N40.0 Benign prostatic hyperplasia without lower urinary tract symptoms; N20.0 Calculus of kidney; I48.0 Paroxysmal atrial fibrillation; I10 Essential (primary) hypertension; I25.10 Atherosclerotic heart disease of native coronary artery without angina pectoris; I25.2 Old myocardial infarction; Z11.52 Encounter for screening for COVID-19; Z79.899 Other long term (current) drug therapy
CPT/HCPCS: 71046; 74177; 80048; 80053; 81003; 83690; 85025; 85027; 87502; 87811; 93970; 96365; 99284; Q9967